=== PATIENT | male | born 1950 | race Two or more races ===

== ENCOUNTER 2021-08-25 11:11 | Outpatient (REF) | payer MEDICARE, SELFPAY ==
[2021-08-25 12:04] LABS: Influenza A PCR NEGATIVE (Negative); Influenza B PCR NEGATIVE (Negative); Resp Syncy Virus RNA Qual PCR NEGATIVE (Negative); SARS COV2 PCR INHOUSE POSITIVE (Negative)
== END 2021-08-25 11:12 | disposition home or self-care (01) ==
LOC: HO.LNP 11:11
PROVIDERS: Visit Provider Nurse Practitioner Family
DX: R63.0 Anorexia (principal); Z20.822 Contact with and (suspected) exposure to COVID-19
CPT/HCPCS: 0241U

== ENCOUNTER 2022-02-21 07:46 | Outpatient (REF) | payer MEDICARE, SELFPAY ==
[2022-02-21 08:01] LABS: MANUAL DIFF FLAG NO
[2022-02-21 08:18] LABS: Basophils Percent Auto 0.8 % (0-2); Eosinophils Absolute Auto 0.3 X10*3/uL (0.0-0.4); Eosinophils Percent Auto 5.7 % (0-4); Hematocrit 43.9 % (42.0-52.0); Hemoglobin 14.2 g/dl (14.0-18.0); Imm Gran Abs Auto 0.01 X10*3/uL (0.00-0.03); Imm Gran Pct Auto 0.2 % (0.0-0.4); Lymphocytes Absolute Auto 1.7 X10*3/uL (1.2-4.9); Lymphocytes Percent Auto 33.3 % (20-40); Mean Corpuscular HGB Conc 32.3 g/dl (31.0-36.0); Mean Corpuscular Hemoglobin 29.9 pg (27.0-33.0); Mean Corpuscular Volume 92.4 fL (80.0-98.0); Mean Platelet Volume 9.4 fL (9.4-12.4); Monocytes Absolute Auto 0.5 X10*3/uL (0.1-1.2); Monocytes Percent Auto 9.2 % (2-11); Neutrophils Absolute Auto 2.6 x10*3/uL (2.0-8.3); Neutrophils Percent Auto 50.8 % (45-73); Platelet Count 221 X10*3/uL (160-400); Red Blood Count 4.75 X10*6/uL (4.60-5.80); Red Cell Distribution Width 13.2 % (11.0-16.0); White Blood Count 5.1 X10*3/uL (4.8-10.8)
[2022-02-21 08:34] LABS: Alanine Aminotransferase 19 U/L (0-40); Albumin Level 4.2 g/dL (3.5-5.0); Alkaline Phosphatase 72 U/L (39-117); Anion Gap 11 (12-20); Aspartate Amino Transferase 20 U/L (5-37); Bilirubin Total 0.8 mg/dL (0.0-1.0); Blood Urea Nitrogen 27 mg/dL (9-16); Calcium 9.3 mg/dL (8.4-10.2); Carbon Dioxide 30 mmol/L (22-29); Chloride 105 mmol/L (96-108); Cholesterol 197 mg/dL; Estimated Glomerular Filt Rate 59; Glucose Fasting 101 mg/dL (60-99); HDL Cholesterol 51 mg/dL; LDL Cholesterol Calculated 134 mg/dl; Potassium 4.6 mmol/L (3.3-5.1); Sodium 141 mmol/L (135-145); Total Protein 6.8 g/dL (6.5-8.0); Triglycerides 61 mg/dL
[2022-02-21 08:59] LABS: Free T4 (Free Thyroxine) 1.14 ng/dL (0.71-1.85); Prostate Specific Antigen Scr 3.33 ng/mL (<0.05-4.0); Thyroid Stimulating Hormone 1.23 uIU/mL (0.32-4.0)
[2022-02-21 09:05] LABS: Folate 18.7 ng/mL (> or = 4.0); Vitamin B12 338 pg/mL (200-900)
== END 2022-02-21 07:47 | disposition home or self-care (01) ==
LOC: HO.LAB 07:46
PROVIDERS: PCP Internal Medicine; Visit Provider Internal Medicine
DX: Z13.1 Encounter for screening for diabetes mellitus (principal); Z12.5 Encounter for screening for malignant neoplasm of prostate; R03.0 Elevated blood-pressure reading, without diagnosis of hypertension; E78.00 Pure hypercholesterolemia, unspecified
CPT/HCPCS: 36415; 80053; 80061; 82607; 82746; 84153; 84439; 84443; 85025

== ENCOUNTER 2023-07-05 07:35 | Outpatient (REF) | payer MEDICARE, SELFPAY ==
[2023-07-05 10:44] LABS: MANUAL DIFF FLAG NO
[2023-07-05 10:54] LABS: Basophils Percent Auto 0.7 % (0-2); Eosinophils Absolute Auto 0.2 X10*3/uL (0.0-0.4); Hematocrit 44.1 % (42.0-52.0); Hemoglobin 14.8 g/dl (14.0-18.0); Imm Gran Abs Auto 0.01 X10*3/uL (0.00-0.03); Imm Gran Pct Auto 0.2 % (0.0-0.4); Lymphocytes Absolute Auto 1.7 X10*3/uL (1.2-4.9); Lymphocytes Percent Auto 28.7 % (20-40); Mean Corpuscular HGB Conc 33.6 g/dl (31.0-36.0); Mean Corpuscular Hemoglobin 30.3 pg (27.0-33.0); Mean Corpuscular Volume 90.4 fL (80.0-98.0); Mean Platelet Volume 9.5 fL (9.4-12.4); Monocytes Absolute Auto 0.4 X10*3/uL (0.1-1.2); Monocytes Percent Auto 5.9 % (2-11); Neutrophils Absolute Auto 3.7 x10*3/uL (2.0-8.3); Neutrophils Percent Auto 61.5 % (45-73); Platelet Count 265 X10*3/uL (160-400); Red Blood Count 4.88 X10*6/uL (4.60-5.80); Red Cell Distribution Width 12.9 % (11.0-16.0); White Blood Count 6.1 X10*3/uL (4.8-10.8)
[2023-07-05 11:15] LABS: Alanine Aminotransferase 15 U/L (0-40); Alkaline Phosphatase 65 U/L (39-117); Anion Gap 12 (12-20); Aspartate Amino Transferase 18 U/L (5-37); Bilirubin Total 0.7 mg/dL (0.0-1.0); Blood Urea Nitrogen 22 mg/dL (9-16); Calcium 9.6 mg/dL (8.4-10.2); Carbon Dioxide 27 mmol/L (22-29); Chloride 104 mmol/L (96-108); Cholesterol 189 mg/dL (<200); Estimated Glomerular Filt Rate > 60; Glucose Random 93 mg/dL (60-115); HDL Cholesterol 50 mg/dL (>40); LDL Cholesterol Calculated 125 mg/dL (<100); Potassium 4.7 mmol/L (3.3-5.1); Sodium 138 mmol/L (135-145); Triglycerides 73 mg/dL (<150)
[2023-07-05 11:23] LABS: Free T4 (Free Thyroxine) 1.01 ng/dL (0.71-1.85); Thyroid Stimulating Hormone 1.09 uIU/mL (0.32-4.0)
[2023-07-05 11:33] LABS: Folate 12.7 ng/mL (> or = 4.0); Vitamin B12 349 pg/mL (200-900)
== END 2023-07-05 07:36 | disposition home or self-care (01) ==
LOC: HO.10HDL 07:35
PROVIDERS: Visit Provider Internal Medicine
DX: E78.00 Pure hypercholesterolemia, unspecified (principal)
CPT/HCPCS: 36415; 80053; 80061; 82607; 82746; 84439; 84443; 85025

== ENCOUNTER 2023-07-12 09:25 | Outpatient (AMB) | payer MEDICARE, SELFPAY ==
[2023-07-12 09:28] VITALS: BP 150/82; PULSE 81; O2SAT 98; BMI 25.8
--- NOTE | 2023-07-12 09:28 | MHC.PC.OV ---
Vital Signs 07/12/23 09:28 Height 5 ft 7 in Weight 165 lb BMI 25.8 BP 150/82 H Blood Pressure Location Lt brachial Position Sitting Pulse 81 Pulse Source Pulse Oximeter Pulse Oximetry (%) 98 Oxygen Delivery Method Room Air Intake Visit Reasons: follow up Intake Note: Patient had 3 cups of coffee this morning. Allergies No Known Allergies Allergy (Verified 07/12/23 09:29) Tobacco use date assessed: 07/12/23 Fall risk assessment: No Falls in past year Last assessed Fall Risk: 07/12/23 Dental Screening Dental Screen Date: 07/12/23 Did you have a dental visit in the last 12 months?: Yes Did you have a dental problem in the last 6 months where you did not have access to dental care?: No Was dental information given to patient?: Patient has dentist HPI follow up HPI Details 73 year old male with hypercholesterol impaired glucose tolerance here for follow-up in February 2020 last seen Cologuard done in 2018. Review of the notes has been follow-up with Rheumatology 0 AP having cervical and lumbar disc degeneration and osteoarthritis using naproxen/Voltaren gel [facility] Medical History (Updated 07/12/23 @ 10:12 by Randall Monae MD) Degenerative disc disease, thoracic Surgical History (Updated 10/11/21 @ 19:09 by DONTE Matthew) History of colonoscopy History of testicular surgery H/O ventral hernia repair H/O arthroscopic knee surgery H/O thumb surgery Cervical disc disease Family History (Updated 07/12/23 @ 09:30 by Jessika Souza CMA) Father Myocardial infarct Paternal Aunt Myocardial infarct Social History Housing: House Alcohol intake: current Patient Tobacco Use Status: Former Tobacco user Tobacco use type: Cigarette Years Smoked: quit 1975 e-Cigarette/Vaping Use: Never Used Second Hand Smoke Exposure: No service: No Current occupational status: retired Cognitive needs: No Hearing needs: Yes Vision needs: Yes Questionnaire PHQ-9 Over the last 2 weeks, how often have you been bothered by any of the following problems? 1. Little interest or pleasure in doing things: not at all 2. Feeling down, depressed, or hopeless: not at all 3. Trouble falling or staying asleep, or sleeping too much: not at all 4. Feeling tired or having little energy: not at all 5. Poor appetite or overeating: not at all 6. Feeling bad about yourself - or that you are a failure or have let yourself or your family down: not at all 7. Trouble concentrating on things, such as reading the newspaper or watching television: not at all 8. Moving or speaking so slowly that other people could have noticed. Or the opposite - being so fidgety or restless that you have been moving around a lot more than usual: not at all 9. Thoughts that you would be better off or of hurting yourself in some way: not at all Total score: 0 Depression Screening Interpretation: Negative Depression Screening Done: Yes Source: Developed by Drs. Dino Luna, Lynne Botello, Christopher Vincent and colleagues, with an educational сергей from [employer]. Thrive Questionnaire Date Thrive assessed: 07/12/23 I am a: Patient What is your living situation today?: I have a steady place to live Within the past 12 months, did the food you bought not last and you didn't have the money to get more?: Never true Within the past 12 months, did you worry whether your food would run out before you got money to buy more?: Never true Do you have trouble paying for medicines?: No Do you have trouble getting transportation to medical appointments?: No Do you have trouble paying your heating and electricity bill?: No Do you have trouble taking care of your child, family member or friend?: No Do you have trouble with day-to-day activities such as bathing, preparing meals, shopping, managing finances, etc.?: No Are you currently unemployed and looking for a job?: No Are you interested in more education?: No Currently or been in a relationship where the following occur: no concerns reported AUDIT C Alcohol Use Questionnaire (AUDIT-C) 1. How often do you have a drink containing alcohol?: 4 or more times a week 2. How many drinks containing alcohol do you have on a typical day when you are drinking?: 1 or 2 3. How often do you have six or more drinks on one occasion?: Never Total Score: 4 ROZ-7 AMB Questionnaire ROZ-7 Date ROZ - 7 assessed: 07/12/23 Feeling nervous, anxious, or on edge: 0 = Not at all Not being able to stop or control worryin = Not at all Worrying too much about different things: 0 = Not at all Trouble relaxin = Not at all Being so restless that it is hard to sit still: 0 = Not at all Becoming easily annoyed or irritable: 0 = Not at all Feeling afraid as if something awful might happen: 0 = Not at all Total ROZ-7 score (0-4 normal; 5-9 mild; 10-14 moderate; 15-21 severe): 0 Source: Developed by Drs. Dino Luna, Lynne Botello, Christopher Vincent and colleagues, with an educational сергей from [employer]. Physical exam (Primary Care) Vital Signs: Last Vital Signs Pulse 81 07/12/23 09:28 BP 150/82 H 07/12/23 09:28 Pulse Ox 98 07/12/23 09:28 Oxygen Delivery Method Room Air 07/12/23 09:28 BMI result Body Mass Index 25.8 Tobacco/Smoking Status: Tobacco use Status Tobacco use date assessed 07/12/23 07/12/23 09:31 Patient Tobacco Use Status Former Tobacco user 07/12/23 09:31 Tobacco use type Cigarette 07/12/23 09:31 e-Cigarette/Vaping Use Never Used 07/12/23 09:31 PHQ-9: PHQ-9 Score PHQ-9: Total score 0 07/12/23 09:36 Depression Screening Interpretation: Negative Thrive Assessment: Date of Thrive Assessment Date Thrive assessed 07/12/23 07/12/23 09:31 Currently or been in a relationship where the following occur: no concerns reported Const General: alert; No acute distress Eyes Conjunctivae: conjunctivae normal Resp Auscultation: clear to auscultation bilaterally Cardio Rate: regular rate Rhythm: regular rhythm GI Inspection: Yes normal to inspection Extrem General: Yes normal to inspection and No edema Assessment and Plan Assessment & Plan (1) Impaired glucose tolerance: Code(s): R73.02 - Impaired glucose tolerance (oral) Plan: Decrease the amount of carbohydrate intake, pasta, bread, rice and potatoes are all sugar and that is aside from all the sweet stuff, remember that fruits are good but they are Sweet also. Recent blood work normal (2) Hypercholesterolemia: Code(s): E78.00 - Pure hypercholesterolemia, unspecified Plan: Avoid fried foods, chicken skin, eggs, butter margarine, pastries and meat. Be it pork or beef they have a lot of cholesterol recent blood work normal (3) Degenerative disc disease, thoracic: Comment: Thoracic and lumbar with lumbar spondylosis 2013 Code(s): M51.34 - Other intervertebral disc degeneration, thoracic region Plan: Patient follows up with Rheumatology (4) Osteoarthritis, hand: Code(s): M19.049 - Primary osteoarthritis, unspecified hand Plan: Patient follows up with Rheumatology naproxen/Voltaren gel Coding Level of Care Code Est Pt Level 4 (85524) Diagnoses Impaired glucose tolerance R73.02 Hypercholesterolemia E78.00 Degenerative disc disease, thoracic M51.34 Osteoarthritis, hand M19.049 Additional Codes PHQ-9 - 39443 - PHQ-9 Billing: ([id number])
== END 2023-07-12 10:25 | disposition home or self-care (01) ==
PROVIDERS: PCP Internal Medicine; Visit Provider Internal Medicine
DX: R73.02 Impaired glucose tolerance (oral) (principal); E78.00 Pure hypercholesterolemia, unspecified; M51.34 Other intervertebral disc degeneration, thoracic region; M19.049 Primary osteoarthritis, unspecified hand
CPT/HCPCS: 99214

== ENCOUNTER 2023-07-27 14:19 | Outpatient (AMB) | payer MEDICARE, SELFPAY ==
--- NOTE | 2023-07-27 14:26 | A.OFFVIS_ITS ---
Intake Vital Signs 07/27/23 14:30 Height 5 ft 7 in Weight 166 lb 8 oz BMI 26.1 BP 130/74 Blood Pressure Location Lt brachial Position Sitting Pulse 74 Pulse Source Pulse Oximeter Pulse Oximetry (%) 96 Oxygen Delivery Method Room Air Intake Visit Reasons: AWV Intake Note: Patient is here for an Annual Wellness Visit. 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 Patient of Dr. Monae. Today we discussed patient's need for prostate cancer screening. Cologuard negative 09/2022. [place] of care was reviewed with the patient and he was provided with a screening schedule. End of life planning was discussed with the patient and he was provided with healthcare proxy and MOLST forms. [facility] Medical History COVID-19 virus infection Degenerative disc disease, thoracic Surgical History History of colonoscopy History of testicular surgery H/O ventral hernia repair H/O arthroscopic knee surgery H/O thumb surgery Cervical disc disease Family History Father Myocardial infarct Paternal Aunt Myocardial infarct Social History Housing: House Alcohol intake: current Patient Tobacco Use Status: Former Tobacco user Tobacco use type: Cigarette Years Smoked: quit 1975 e-Cigarette/Vaping Use: Never Used Second Hand Smoke Exposure: No service: No Current occupational status: retired Cognitive needs: No Hearing needs: Yes Vision needs: Yes Questionnaire Medicare Wellness Checkup [age] What gender do you identify with?: male Can you get to places out of walking distance without help? (For eg., can you travel alone on buses, taxis or drive your car?): Yes Can you go shopping for groceries or clothes without someone's help?: Yes Can you prepare your own meals?: Yes Can you do your housework without help?: Yes Because of any health problems, do you need the help of another person with your personal care needs such as eating, bathing, dressing or getting around the house?: No Can you handle your own money without help?: Yes Are you having difficulties driving your car?: no Do you always fasten your seat belt when you are in a car?: yes, usually During past 4 weeks, have you been bothered by the following: never: Falling or dizzy when standing up, Sexual problems?, Trouble eating well?, Teeth or denture problems?, Problems using the telephone? and Tiredness or fatigue? Have you fallen 2 or more times in the past year?: No Are you afraid of falling?: No Are you a smoker?: no During the past 4 weeks, how many drinks of wine, beer, or other alcoholic beverages did you have?: 1 drink or less per week Do you exercise for about 20 minutes 3 or more times a week?: yes, all the time Have you been given information to help with the following?: yes: Keeping track of your medications? and no: Hazards in your house that might hurt you? How often do you have trouble taking medicines the way you have been told to take them?: I always take medicine as prescribed How confident are you that you can control & manage most of your health problems?: very confident What is your race?: White Mini Mental State Exam (MMSE) Orientation What is the (year) (season) (date) (day) (month)?: year, season, date, day and month Score Score: 5 Activity of Daily Living Bathing - sponge bath, tub bath or shower: receives no assistance (gets in/out by self, if usual bathing means Dressing - getting clothes from closets & drawers, including inner/outer garments & fasteners.: gets clothes & gets completely dressed without help Toileting - going to the 'toilet room' for urine/bowel elimination & cleaning self/arranging clothes: goes to toilet room, cleans self, arranges clothes without help Transfer: moves in & out of bed and chair without help (may use support object) Continence: controls urination/bowel movements completely by self Feeding: feeds self without help Total Score: 0 Information obtained from: patient Using telephone: independent Traveling: independent Shopping: independent Preparing meals: independent Housework: independent Taking medicine: independent Managing money: independent Thrive Questionnaire Date Thrive assessed: 07/12/23 ROZ-7 AMB Questionnaire ROZ-7 Date ROZ - 7 assessed: 07/12/23 Source: Developed by Drs. Dino Luna, Lynne Botello, Christopher Vincent and colleagues, with an educational сергей from [employer]. Physical Exam Vital Signs: Last Vital Signs Pulse 74 07/27/23 14:30 BP 130/74 07/27/23 14:30 Pulse Ox 96 07/27/23 14:30 Oxygen Delivery Method Room Air 07/27/23 14:30 BMI result Body Mass Index 26.1 Const General: cooperative and no acute distress Orientation/consciousness: patient oriented x3 HEENT Other: Whisper test: fail (bilateral hearing aids) Ears: TM's normal bilaterally Neuro Other: Balance: Normal Get up and walk: able to Romberg: negative Tandem gait: able to General: patient oriented x3 Assessment & Plan Assessment & Plan (1) Adult general medical exam: Code(s): Z00.00 - Encounter for general adult medical examination without abnormal findings (2) Screening for prostate cancer: Code(s): Z12.5 - Encounter for screening for malignant neoplasm of prostate (3) Arthritis: Code(s): M19.90 - Unspecified osteoarthritis, unspecified site Plan: Naproxen 500 mg 2 times a day as needed (4) Blood pressure elevated without history of HTN: Code(s): R03.0 - Elevated blood-pressure reading, without diagnosis of hypertension Plan: Blood pressure stable in the office (5) Impaired glucose tolerance: Code(s): R73.02 - Impaired glucose tolerance (oral) Plan: Low-carbohydrate diet (6) Hypercholesterolemia: Code(s): E78.00 - Pure hypercholesterolemia, unspecified Plan: Low-cholesterol diet Orders: Orders Prostate Specific Antigen Today Z12.5 - Encounter for screening for malignant neoplasm of prostate Coding Level of Care Code Medicare Subsequent (G0439) Diagnoses Adult general medical exam Z00.00 Screening for prostate cancer Z12.5 Arthritis M19.90 Blood pressure elevated without history of HTN R03.0 Impaired glucose tolerance R73.02 Hypercholesterolemia E78.00 CPT Codes Advance Care Planning - Time spent: 1-15 minutes, not on file ([id number]) Advance Care Planning Date of discussion: 07/27/23 Who was present: pt and osteopathic resident Forms completed: None Time spent: 1-15 minutes, not on file Actual minutes spent: 3 Did not discuss due to Cultural/Spiritual beliefs: No
[2023-07-27 14:30] VITALS: BP 130/74; PULSE 74; O2SAT 96; BMI 26.1
== END 2023-07-27 14:56 | disposition home or self-care (01) ==
PROVIDERS: PCP Internal Medicine; Visit Provider Nurse Practitioner Family
DX: Z00.00 Encounter for general adult medical examination without abnormal findings (principal); Z12.5 Encounter for screening for malignant neoplasm of prostate; M19.90 Unspecified osteoarthritis, unspecified site; R03.0 Elevated blood-pressure reading, without diagnosis of hypertension; R73.02 Impaired glucose tolerance (oral); E78.00 Pure hypercholesterolemia, unspecified
CPT/HCPCS: 1124F; G0439

== ENCOUNTER 2024-07-31 13:49 | Outpatient (AMB) | payer MEDICARE, SELFPAY ==
[2024-07-31 13:53] VITALS: BP 112/72; PULSE 69; O2SAT 99; BMI 25.4
--- NOTE | 2024-07-31 13:53 | AM.OFFVISMDC ---
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 Last seen in 07/06/2023. Patient's Cologuard test 10/06/2022 Rheumatology, Ophthalmology Dr. Trejo [facility] Medical History (Updated 07/31/24 @ 13:58 by Randall Monae MD) Screening for prostate cancer COVID-19 virus infection Degenerative disc disease, thoracic Surgical History History of colonoscopy History of testicular surgery H/O ventral hernia repair H/O arthroscopic knee surgery H/O thumb surgery Cervical disc disease Family History Father Myocardial infarct Paternal Aunt Myocardial infarct Social History (Updated 07/31/24 @ 14:07 by Randall Monae MD) Housing: House Alcohol intake: current Comment: 1-2 a week glass of wine Patient Tobacco Use Status: Former Tobacco user Tobacco use type: Cigarette Years Smoked: quit 1975 e-Cigarette/Vaping Use: Never Used Second Hand Smoke Exposure: No service: No Current occupational status: retired Cognitive needs: No Hearing needs: Yes Vision needs: Yes Questionnaire Medicare Wellness Checkup What [age]?: [age] What gender do you identify with?: male During the past 4 weeks, how much have you been bothered by emotional problems such as feeling anxious, depressed, irritable, sad or downhearted, and blue?: not at all During the past 4 weeks, has your physical & emotional health limited your social activities with family, friends, neighbors, or groups?: not at all During the past 4 weeks, how much bodily pain have you generally had?: mild pain During the past 4 weeks, was someone available to help you if you needed & wanted help?: yes, as much as I wanted During the past 4 weeks, what was the hardest physical activity you could do for at least 2 minutes?: heavy Can you get to places out of walking distance without help? (For eg., can you travel alone on buses, taxis or drive your car?): Yes Can you go shopping for groceries or clothes without someone's help?: Yes Can you prepare your own meals?: Yes Can you do your housework without help?: Yes Because of any health problems, do you need the help of another person with your personal care needs such as eating, bathing, dressing or getting around the house?: No Can you handle your own money without help?: Yes During the past 4 weeks, how would you rate your health in general?: good During the past 4 weeks how have things been going for you?: pretty well Are you having difficulties driving your car?: no Do you always fasten your seat belt when you are in a car?: yes, usually Have you fallen 2 or more times in the past year?: No Are you afraid of falling?: No Are you a smoker?: no During the past 4 weeks, how many drinks of wine, beer, or other alcoholic beverages did you have?: 1 drink or less per week Do you exercise for about 20 minutes 3 or more times a week?: no, I usually do not exercise this much Have you been given information to help with the following?: no: Hazards in your house that might hurt you? and no: Keeping track of your medications? How often do you have trouble taking medicines the way you have been told to take them?: I always take medicine as prescribed How confident are you that you can control & manage most of your health problems?: very confident What is your race?: Other PHQ-9 Over the last 2 weeks, how often have you been bothered by any of the following problems? 1. Little interest or pleasure in doing things: not at all 2. Feeling down, depressed, or hopeless: not at all 3. Trouble falling or staying asleep, or sleeping too much: not at all 4. Feeling tired or having little energy: not at all 5. Poor appetite or overeating: not at all 6. Feeling bad about yourself - or that you are a failure or have let yourself or your family down: not at all 7. Trouble concentrating on things, such as reading the newspaper or watching television: not at all 8. Moving or speaking so slowly that other people could have noticed. Or the opposite - being so fidgety or restless that you have been moving around a lot more than usual: not at all 9. Thoughts that you would be better off or of hurting yourself in some way: not at all Total score: 0 Depression Screening Interpretation: Negative Depression Screening Done: Yes 73716 - PHQ-9 Billing: Yes Source: Developed by Drs. Dino Luna, Lynne Botello, Christopher Vincent and colleagues, with an educational сергей from [employer]. Review of Systems Const Denies poor appetite and Denies weakness Eyes Denies no additional complaints ENT Reports Normal hearing present, Denies dizziness, Denies nasal congestion, Denies tinnitus and Denies sore throat Card Denies chest pain, Denies syncope, Denies rapid heart rate and Denies dyspnea Resp Denies cough and Denies dyspnea GI Denies change in stool character, Reports constipation, Denies diarrhea, Denies nausea and Denies vomiting Denies dysuria and Denies urinary frequency Neuro Reports Normal hearing present, Denies confusion, Denies dizziness, Denies syncope and Denies weakness Psych Denies confusion Physical Exam Vital Signs: Oxygen Delivery Method Room Air 07/31/24 13:53 BMI result Body Mass Index 25.4 Const General: No confusion Orientation/consciousness: No confusion HEENT Head: Yes normocephalic Ears: external ears normal and TM's normal bilaterally Face and sinus: Yes normal facial exam Mouth: moist mucous membranes Throat: Yes tonsils normal Eyes Conjunctivae: conjunctivae normal Pupils: Equal, round and reactive pupils present and Pupil accommodation reflex normal Direct Ophthalmoscopy: normal light reflex Neck Neck: No lymphadenopathy Thyroid: Thyroid normal Chest Chest palpation & inspection: normal inspection of the chest Resp Effort & Inspection: normal respiratory effort and no audible wheezes Auscultation: clear to auscultation bilaterally, no crackles, no wheezes and lung sounds not diminished Cardio Rate: regular rate Rhythm: regular rhythm Peripheral pulses: radial pulses present and dorsalis pedis present GI Other: guaic negative mild enlarged prostate Palpation (GI): no masses Auscultation: normal bowel sounds and normoactive bowel sounds Male General Exam: Yes normal external exam Skin General skin exam: no rashes or lesions noted Rashes: no rashes Neuro General: No confusion Cranial nerves: Yes Equal, round and reactive pupils present and Yes Normal hearing present Cognition (Neuro): normal cognition Gait exam (Neuro): Normal gait present Motor exam (neuro): 5/5 motor strength present throughout Deep tendon reflexes (DTR's): Right brachioradialis reflex intensity grade: 2+, Left brachioradialis reflex intensity grade: 2+, Right patellar reflex intensity grade: 2+ and Left patellar reflex intensity grade: 2+ Extrem General: No edema Assessment & Plan Assessment & Plan (1) Medicare annual wellness visit, subsequent: Code(s): Z00.00 - Encounter for general adult medical examination without abnormal findings Plan: Patient is advised to eat healthy, keep well hydrated, keep active and have adequate sleep. (2) Impaired glucose tolerance: Code(s): R73.02 - Impaired glucose tolerance (oral) Plan: Decrease the amount of carbohydrate intake, pasta, bread, rice and potatoes are all sugar and that is aside from all the sweet stuff, remember that fruits are good but they are Sweet also. Repeat testing normal (3) Hypercholesterolemia: Code(s): E78.00 - Pure hypercholesterolemia, unspecified Plan: Avoid fried foods, chicken skin, eggs, butter margarine, pastries and meat. Be it pork or beef they have a lot of cholesterol LDL goal of less than 130 and triglyceride of less than 150. Repeat testing resolved (4) Degenerative disc disease, thoracic: Comment: Thoracic and lumbar with lumbar spondylosis 2013 Code(s): M51.34 - Other intervertebral disc degeneration, thoracic region Plan: Continue to be active and when taking anti-inflammatory, need full stomach. Quality Reporting (2019) Depression/Bipolar (159/160/161/177) PHQ-9: Total score: 0 Coding Level of Care Code Medicare Subsequent (G0439) Diagnoses Medicare annual wellness visit, subsequent Z00.00 Impaired glucose tolerance R73.02 Hypercholesterolemia E78.00 Degenerative disc disease, thoracic M51.34 Additional Codes PHQ-9 - 10755 - PHQ-9 Billing: Yes ([id number])
== END 2024-07-31 14:22 | disposition home or self-care (01) ==
PROVIDERS: PCP Internal Medicine; Visit Provider Internal Medicine
DX: Z00.00 Encounter for general adult medical examination without abnormal findings (principal); R73.02 Impaired glucose tolerance (oral); E78.00 Pure hypercholesterolemia, unspecified; M51.34 Other intervertebral disc degeneration, thoracic region

== ENCOUNTER → 2024-07-31 13:49 | Outpatient (BNVA) | payer MEDICARE, SELFPAY | PROVIDERS: PCP Internal Medicine; Visit Provider Internal Medicine | DX: Z00.00 Encounter for general adult medical examination without abnormal findings (principal); R73.02 Impaired glucose tolerance (oral); E78.00 Pure hypercholesterolemia, unspecified; M51.34 Other intervertebral disc degeneration, thoracic region | CPT/HCPCS: 96127 ==

== ENCOUNTER 2024-09-30 10:17 | Outpatient (AMB) | payer MEDICARE, SELFPAY ==
--- NOTE | 2024-09-30 10:31 | MHC.PC.OV ---
Vital Signs 09/30/24 10:33 Height 5 ft 7 in Weight 167 lb 6 oz BMI 26.2 BP 130/76 Blood Pressure Location Lt brachial Position Sitting Pulse 69 Pulse Source Pulse Oximeter Pulse Oximetry (%) 94 Oxygen Delivery Method Room Air Intake Visit Reasons: Derm Referral Intake Note: Patient is here to follow up on Dermatology referral. 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: Not Required per policy Accompanied by: Self / Same As Patient Allergies No Known Allergies Allergy (Verified 09/30/24 10:33) Tobacco use date assessed: 09/30/24 Fall risk assessment: No Falls in past year Last assessed Fall Risk: 09/30/24 Dental Screening Dental Screen Date: 09/30/24 Did you have a dental visit in the last 12 months?: Yes Did you have a dental problem in the last 6 months where you did not have access to dental care?: No Was dental information given to patient?: Patient has dentist HPI Derm Referral HPI Details The patient is a 74-year-old male presenting with concerns about brown zheng noticed by his approximately one month ago on his back and front of the torso, as well as on his shoulders. There is intermittent associated itchiness but no pain or significant changes in the condition of the spots have been observed since they were first noticed. The patient denies symptoms such as nausea, vomiting, or fever and reports normal bowel movements and urination. He has chronic osteoarthritis, for which he takes Naproxen 500 mg twice daily, and he undergoes annual blood tests to monitor the condition. There were no recent changes in his blood work as of the last update in June last year, with normal renal function and absence of anemia. The blood pressure reading during this visit was 130/76 mmHg, which is stable and well-controlled. Vaccinations have not been recent, and the patient was advised about the importance of flu and COVID-19 vaccinations due to the prevalent respiratory infections, including RSV. The patient was receptive to the advice regarding infection prevention through hand hygiene. He expressed an understanding of the current health risks associated with upper respiratory infections and acknowledged the importance of vaccinations in this context. [facility] Medical History (Updated 09/30/24 @ 11:05 by Randall Monae MD) Screening for prostate cancer COVID-19 virus infection Degenerative disc disease, thoracic Surgical History History of colonoscopy History of testicular surgery H/O ventral hernia repair H/O arthroscopic knee surgery H/O thumb surgery Cervical disc disease Family History Father Myocardial infarct Paternal Aunt Myocardial infarct Social History Housing: House Alcohol intake: current Comment: 1-2 a week glass of wine Patient Tobacco Use Status: Former Tobacco user Tobacco use type: Cigarette Years Smoked: quit 1976 e-Cigarette/Vaping Use: Never Used Second Hand Smoke Exposure: No service: No Current occupational status: retired Cognitive needs: No Hearing needs: Yes Vision needs: Yes Questionnaire PHQ-9 Over the last 2 weeks, how often have you been bothered by any of the following problems? 1. Little interest or pleasure in doing things: not at all 2. Feeling down, depressed, or hopeless: not at all 3. Trouble falling or staying asleep, or sleeping too much: not at all 4. Feeling tired or having little energy: not at all 5. Poor appetite or overeating: not at all 6. Feeling bad about yourself - or that you are a failure or have let yourself or your family down: not at all 7. Trouble concentrating on things, such as reading the newspaper or watching television: not at all 8. Moving or speaking so slowly that other people could have noticed. Or the opposite - being so fidgety or restless that you have been moving around a lot more than usual: not at all 9. Thoughts that you would be better off or of hurting yourself in some way: not at all Total score: 0 Depression Screening Interpretation: Negative Depression Screening Done: Yes Source: Developed by Drs. Dino Luna, Lynne Botello, Christopher Vincent and colleagues, with an educational сергей from [employer]. Thrive Questionnaire Date Thrive assessed: 09/30/24 I am a: Patient What is your living situation today?: I have a steady place to live Within the past 12 months, did the food you bought not last and you didn't have the money to get more?: Never true Within the past 12 months, did you worry whether your food would run out before you got money to buy more?: Never true Do you have trouble paying for medicines?: No Do you have trouble getting transportation to medical appointments?: No Do you have trouble paying your heating and electricity bill?: No Do you have trouble taking care of your child, family member or friend?: No Do you have trouble with day-to-day activities such as bathing, preparing meals, shopping, managing finances, etc.?: No Are you currently unemployed and looking for a job?: No Are you interested in more education?: No Please select the resources that you would like help with: None Currently or been in a relationship where the following occur: No concerns reported and I choose not to answer THRIVE Score: 0 AUDIT C Alcohol Use Questionnaire (AUDIT-C) 1. How often do you have a drink containing alcohol?: 4 or more times a week 2. How many drinks containing alcohol do you have on a typical day when you are drinking?: 1 or 2 Total Score: 4 ROZ-7 AMB Questionnaire ROZ-7 Date ROZ - 7 assessed: 09/30/24 Feeling nervous, anxious, or on edge: 0 = Not at all Not being able to stop or control worryin = Not at all Worrying too much about different things: 0 = Not at all Trouble relaxin = Not at all Being so restless that it is hard to sit still: 0 = Not at all Becoming easily annoyed or irritable: 0 = Not at all Feeling afraid as if something awful might happen: 0 = Not at all Total ROZ-7 score (0-4 normal; 5-9 mild; 10-14 moderate; 15-21 severe): 0 Source: Developed by Drs. Dino Luna, Lynne Botello, Christopher Vincent and colleagues, with an educational сергей from [employer]. Physical exam (Primary Care) Vital Signs: Last Vital Signs Pulse 69 09/30/24 10:33 BP 130/76 09/30/24 10:33 Pulse Ox 94 09/30/24 10:33 Oxygen Delivery Method Room Air 09/30/24 10:33 BMI result Body Mass Index 26.2 Tobacco/Smoking Status: Tobacco use Status Tobacco use date assessed 09/30/24 09/30/24 10:34 Patient Tobacco Use Status Former Tobacco user 09/30/24 10:33 Tobacco use type Cigarette 09/30/24 10:33 e-Cigarette/Vaping Use Never Used 09/30/24 10:33 PHQ-9: PHQ-9 Score PHQ-9: Total score 0 09/30/24 10:39 Depression Screening Interpretation: Negative Thrive Assessment: Date of Thrive Assessment Date Thrive assessed 09/30/24 09/30/24 10:39 Currently or been in a relationship where the following occur: No concerns reported and I choose not to answer Const General: alert; No acute distress Eyes Conjunctivae: conjunctivae normal Resp Auscultation: clear to auscultation bilaterally Cardio Rate: regular rate Rhythm: regular rhythm GI Inspection: Yes normal to inspection Skin Other: multiple pigmented nevi - big irregular hyperpigemnted lesion R shoulder area1 by 2 cm and raised lesion on the L thoracic back area1 by 2 cm Extrem General: Yes normal to inspection and No edema Coding Level of Care Code Est Pt Level 3 (59189) Diagnoses Multiple pigmented nevi D22.9 Actinic keratosis L57.0 Assessment & Plan Assessment & Plan (1) Multiple pigmented nevi: Code(s): D22.9 - Melanocytic nevi, unspecified Category: Medical (2) Actinic keratosis: Code(s): L57.0 - Actinic keratosis Category: Medical Plan - Referral to dermatology for evaluation of skin lesions possibly consistent with seborrheic keratosis. - Continued monitoring of blood pressure, as current readings remain within normal range. - Reinforce adherence to regular blood tests to monitor kidney function given the use of Naproxen, ensuring to take the medication with food. - Discussed the benefits of vaccination for influenza, COVID-19, and RSV due to heightened exposure risk during flu season and patient expressed agreement. - Emphasize the importance of hand hygiene to prevent norovirus and other infections. - Advising patient to [facility] or [facility] for inclusion in their medical records at this clinic. Orders: Referrals Dermatology Referral D22.9 - Melanocytic nevi, unspecified, L57.0 - Actinic keratosis
[2024-09-30 10:33] VITALS: BP 130/76; PULSE 69; O2SAT 94; BMI 26.2
--- OUTSIDE RECORDS SUMMARY | 2024-09-30 11:50 | XMS_ITS | Continuity of Care Document ---
Author Name [facility] Organization [facility] Care Team Providers Care Claims Auditor Name Role Phone [facility] Unavailable Unavailable Problems Combined list of problems from Department of Defense and Veterans Affairs facilities. It does not include entries that were removed or entered in error. 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, right ankle and foot Active Diagnosis [facility] Diagnosis: ICD-10-CM H91.93 Unspecified hearing loss, bilateral Active Diagnosis [facility] Diagnosis: ICD-10-CM M20.10 Hallux valgus (acquired), unspecified foot Active Diagnosis [facility] Diagnosis: ICD-10-CM Z46.0 Encounter for fit/adjst of spectacles and contact lenses Active Diagnosis [facility] Diagnosis: ICD-10-CM H25.813 Combined forms of age-related cataract, bilateral Active Diagnosis [facility] Medications Combined list of outpatient medications from Department of Defense and Veterans Affairs facilities.Medications provided include 1) outpatient medications from the last 15 months, and 2) patient-reported medications. Medication Details Route Status Patient Instructions Prescription Expires Prescription Number Last Dispense Date Ordering Provider Order Date Order Qty Source BENZONATATE 200MG CAP TAKE ONE CAPSULE BY MOUTH THREE TIMES A DAY FOR COUGH FOR COUGH ORAL 08/14/2024 [id number] FURCOLO,T PURNIMA 2023 30 [facility] NAPROXEN 500MG TAB TAKE ONE TABLET BY MOUTH TWICE DAILY ORAL ACTIVE [facility]be [facility]ARR [facility] Allergies, Adverse Reactions, Alerts Combined list of allergies from Department of Defense and Veterans Affairs facilities. It does not include entries that were removed or entered in error. Substance Category Reaction Severity Reaction type Status Date Reported Comments Source ADHESIVE TAPE Propensity to adverse reaction (finding) Eruption active 4 [facility] Results Combined list of recent chemistry, hematology and other laboratory results from Department of Defense and Veterans Affairs, ranging from 15 months to all on record, depending upon the facility. Order Name Results Value Reference Range Date Interpretation Specimen Comments Source LIPID PANEL FASTING CHOLESTEROL [MASS/VOLUM E] IN SERUM OR PLASMA 177 mg/dL 07/15 Specimen Type: SERUM No comment entered. Ordering Provider: SEAN PARR Report Released Date/Time: Jul 04, 2024 02:01 PM Reporting Lab: [facility] [address] [facility] [address] Performing Lab: [facility] [address] [facility] LIPID PANEL FASTING TRIGLYCERID E [MASS/VOLUM E] IN SERUM OR PLASMA 72 mg/dL 0 - 150 07/15 Specimen Type: SERUM No comment entered. Ordering Provider: SEAN PARR Report Released Date/Time: Jul 04, 2024 02:01 PM Reporting Lab: [facility] [address] [facility] [address] Performing Lab: [facility] [address] [facility] LIPID PANEL FASTING CHOLESTEROL IN LDL [MASS/VOLUM E] IN SERUM OR PLASMA BY CALCULATION 118 mg/dL 0 - 129 07/15 Specimen Type: SERUM No comment entered. Ordering Provider: SEAN PARR Report Released Date/Time: Jul 04, 2024 02:01 PM Reporting Lab: [address] [address] Performing Lab: [facility] [address] [facility] [address] [facility] LIPID PANEL FASTING CHOLESTEROL .TOTAL/CHOL ESTEROL IN HDL [MASS RATIO] IN SERUM OR PLASMA 3.9 07/15 Specimen Type: SERUM No comment entered. Ordering Provider: SEAN PARR Report Released Date/Time: Jul 04, 2024 02:01 PM Reporting Lab: [facility] [place] [facility] [address] [facility] [address] Performing Lab: [place] [facility] [place] [facility] [address] [facility] [address] [facility] LIPID PANEL FASTING CHOLESTEROL IN HDL [MASS/VOLUM E] IN SERUM OR PLASMA 45 mg/dL 40 - 60 07/15 Specimen Type: SERUM No comment entered. Ordering Provider: SEAN PARR Report Released Date/Time: Jul 04, 2024 02:01 PM Reporting Lab: [facility] [place] [facility] [address] [facility] [address] Performing Lab: [facility] [address] [address] [facility]N [facility] BASIC METABOLIC PANEL (fasting) UREA NITROGEN [MASS/VOLUM E] IN SERUM OR PLASMA 23 mg/dL 7 - 25 07/15 Specimen Type: SERUM No comment entered. Ordering Provider: SEAN PARR Report Released Date/Time: Jul 04, 2024 02:01 PM Reporting Lab: [facility] [place] [facility] [address] [facility] [address] Performing Lab: [facility] [place] [facility] [address] [facility] [address] [facility] BASIC METABOLIC PANEL (fasting) GLUCOSE [MASS/VOLUM E] IN SERUM OR PLASMA 83 mg/dL 65 - 100 07/15 Specimen Type: SERUM No comment entered. Ordering Provider: SEAN PARR Report Released Date/Time: Jul 04, 2024 02:01 PM Reporting Lab: [facility] [place] [address] [address] Performing Lab: [facility]ITALRHE[facility]OSPITALTRN [facility] [address] [facility] [address] [facility]ITALRHELEN KELLER HOSPITALTRN [facility] BASIC METABOLIC PANEL (fasting) SODIUM [MOLES/VOLU ME] IN SERUM OR PLASMA 137 mmol/L 135 - 145 07/15 Specimen Type: SERUM No comment entered. Ordering Provider: SEAN PARR Report Released Date/Time: Jul 04, 2024 02:01 PM Reporting Lab: [facility] [address] [facility] [address] Performing Lab: [facility]ITAL[facility] TRN [address] [address] [facility] BASIC METABOLIC PANEL (fasting) POTASSIUM [MOLES/VOLU ME] IN SERUM OR PLASMA 4.3 mmol/L 3.5 - 5.0 07/15 Specimen Type: SERUM No comment entered. Ordering Provider: SEAN PARR Report Released Date/Time: Jul 04, 2024 02:01 PM Reporting Lab: [facility] TRN [facility]USE[address] [address] Performing Lab: [facility]ITALRL TRN [facility] [address] [facility] [address] [facility]OSPITALRLAUREL [facility] BASIC METABOLIC PANEL (fasting) CHLORIDE [MOLES/VOLU ME] IN SERUM OR PLASMA 102 mmol/L 100 - 110 07/15 Specimen Type: SERUM No comment entered. Ordering Provider: SEAN PARR Report Released Date/Time: Jul 04, 2024 02:01 PM Reporting Lab: [facility] TRN [facility] [address] [facility] [address] Performing Lab: [facility]ITALRL TRN [facility] [address] [facility] [address] [facility]PITALRLAUREL [facility] BASIC METABOLIC PANEL (fasting) CARBON DIOXIDE, TOTAL [MOLES/VOLU ME] IN SERUM OR PLASMA 27 meq/L 20 - 30 07/15 Specimen Type: SERUM No comment entered. Ordering Provider: FURCOLO,TIN A Report Released Date/Time: Jul 04, 2024 02:01 PM Reporting Lab: [facility] [address] [facility] [address] Performing Lab: [facility] [place] [facility] [address] [facility] [address] [place] [facility] BASIC METABOLIC PANEL (fasting) CREATININE [MASS/VOLUM E] IN SERUM OR PLASMA 1.22 mg/dL 0.50 - 1.40 07/15 Specimen Type: SERUM No comment entered. Ordering Provider: SEAN PARR Report Released Date/Time: Jul 04, 2024 02:01 PM Reporting Lab: [facility] [place] [facility] [address] [facility] [address] Performing Lab: [facility] [place] [facility] [address] [facility] [address] [facility] BASIC METABOLIC PANEL (fasting) GLOMERULAR FILTRATION RATE/1.73 SQ M.PREDICTED [VOLUME RATE/AREA] IN SERUM, PLASMA OR BLOOD BY CREATININE- BASED FORMULA (CKD-EPI 2020) 63 mL/min 60 07/15 Specimen Type: SERUM No comment entered. Ordering Provider: SEAN PARR Report Released Date/Time: Jul 04, 2024 02:01 PM Reporting Lab: [facility] [place] [facility] [address] [facility] [address] Performing Lab: [facility] [place] [facility] [address] [facility] [address] [facility] [place] [facility] LIVER FUNCTION PROTEIN [MASS/VOLUM E] IN SERUM OR PLASMA 6.7 g/dL 6.0 - 8.3 07/15 Specimen Type: SERUM No comment entered. Ordering Provider: SEAN PARR Report Released Date/Time: Jul 04, 2024 02:01 PM Reporting Lab: [facility] [place] [facility] [address] [facility] [address] Performing Lab: [facility] [address] [facility] [address] [facility] LIVER FUNCTION ALBUMIN [MASS/VOLUM E] IN SERUM OR PLASMA 3.7 g/dL 3.5 - 5.0 07/15 Specimen Type: SERUM No comment entered. Ordering Provider: SEAN PARR Report Released Date/Time: Jul 04, 2024 02:01 PM Reporting Lab: [facility] [place] [facility] [address] [facility] [address] Performing Lab: [facility] [place] [facility] [address] [facility] [address] [place] [facility] LIVER FUNCTION ALKALINE PHOSPHATASE [ENZYMATIC ACTIVITY/VO LUME] IN SERUM OR PLASMA 64 U/L 40 - 150 07/15 Specimen Type: SERUM No comment entered. Ordering Provider: SEAN PARR Report Released Date/Time: Jul 04, 2024 02:01 PM Reporting Lab: [facility] [place] [facility] [address] [facility] [address] Performing Lab: [facility] [place] [facility] [address] [facility] [address] [facility] [place] LIVER FUNCTION ASPARTATE AMINOTRANSF ERASE [ENZYMATIC ACTIVITY/VO LUME] IN SERUM OR PLASMA 20 U/L 5 - 34 07/15 Specimen Type: SERUM No comment entered. Ordering Provider: SEAN PARR Report Released Date/Time: Jul 04, 2024 02:01 PM Reporting Lab: [facility] [place] [facility] [address] [facility] [address] Performing Lab: [facility] [place] [facility] [address] [facility] [address] [facility] LIVER FUNCTION ALANINE AMINOTRANSF ERASE [ENZYMATIC ACTIVITY/VO LUME] IN SERUM OR PLASMA 17 U/L 07/15 Specimen Type: SERUM No comment entered. Ordering Provider: SEAN PARR Report Released Date/Time: Jul 04, 2024 02:01 PM Reporting Lab: [facility] [facility] [address] [facility] [address] Performing Lab: [facility] [place] [facility] [address] [facility] [address] [facility] LIVER FUNCTION BILIRUBIN.T OTAL [MASS/VOLUM E] IN SERUM OR PLASMA 0.6 mg/dL 0.2 - 1.2 07/15 Specimen Type: SERUM No comment entered. Ordering Provider: SEAN PARR Report Released Date/Time: Jul 04, 2024 02:01 PM Reporting Lab: [facility] [place] [address] [address] Performing Lab: [facility] [place] [facility] [address] [facility] [address] [facility] CBC LEUKOCYTES [#/VOLUME] IN BLOOD BY AUTOMATED COUNT 8.76 10*3/u L 4.50 - 11.00 07/15 Specimen Type: BLOOD No comment entered. Ordering Provider: SEAN PARR Report Released Date/Time: Jul 04, 2024 02:01 PM Reporting Lab: [facility] [address] [address] Performing Lab: [facility] [place] [facility] [address] [facility] [address] [facility] CBC ERYTHROCYTE S [#/VOLUME] IN BLOOD BY AUTOMATED COUNT 4.44 10*6/u L 4.23 - 5.66 07/15 Specimen Type: BLOOD No comment entered. Ordering Provider: SEAN PARR Report Released Date/Time: Jul 04, 2024 02:01 PM Reporting Lab: [facility] [address] [address] Performing Lab: [facility] [place] [facility] [address] [facility] [address] [facility] CBC HEMOGLOBIN [MASS/VOLUM E] IN BLOOD 13.8 g/dL 12.8 - 17 07/15 Specimen Type: BLOOD No comment entered. Ordering Provider: SEAN PARR Report Released Date/Time: Jul 04, 2024 02:01 PM Reporting Lab: [facility] [place] [address] [address] Performing Lab: [facility] [place] [facility] [address] [facility] [address] [facility] CBC HEMATOCRIT [VOLUME FRACTION] OF BLOOD BY AUTOMATED COUNT 40.7 39.2 - 50.4 07/15 Specimen Type: BLOOD No comment entered. Ordering Provider: SEAN PARR Report Released Date/Time: Jul 04, 2024 02:01 PM Reporting Lab: [facility] [place] [facility] [address] [facility] [address] Performing Lab: [facility] [place] [facility] [address] [facility] [address] [facility] CBC MCV [ENTITIC VOLUME] BY AUTOMATED COUNT 91.7 fL 82 - 99 07/15 Specimen Type: BLOOD No comment entered. Ordering Provider: SEAN PARR Report Released Date/Time: Jul 04, 2024 02:01 PM Reporting Lab: [facility] [place] [facility] [address] [facility] [address] Performing Lab: [facility] [facility] [address] [facility] [address] [facility] CBC MCHC [MASS/VOLUM E] BY AUTOMATED COUNT 33.9 g/dL 30.8 - 35.1 07/15 Specimen Type: BLOOD No comment entered. Ordering Provider: SEAN PARR Report Released Date/Time: Jul 04, 2024 02:01 PM Reporting Lab: [facility] [facility] [address] [facility] [address] Performing Lab: [facility] [facility] [address] [facility] [address] [facility] CBC PLATELETS [#/VOLUME] IN BLOOD BY AUTOMATED COUNT 270 10*3/u L 140 - 360 07/15 Specimen Type: BLOOD No comment entered. Ordering Provider: SEAN PARR Report Released Date/Time: Jul 04, 2024 02:01 PM Reporting Lab: [facility] [facility] [address] [facility] [address] Performing Lab: [facility] [facility] [address] [facility] [address] [facility] CBC ERYTHROCYTE DISTRIBUTIO N WIDTH [RATIO] BY AUTOMATED COUNT 12.5 12.0 - 16.0 07/15 Specimen Type: BLOOD No comment entered. Ordering Provider: SEAN PARR Report Released Date/Time: Jul 04, 2024 02:01 PM Reporting Lab: [facility] [address] [facility] [address] Performing Lab: [facility] [address] [facility] [address] [facility] CBC MCH [ENTITIC MASS] BY AUTOMATED COUNT 31.1 pg 26.2 - 32.6 07/15 Specimen Type: BLOOD No comment entered. Ordering Provider: SEAN PARR Report Released Date/Time: Jul 04, 2024 02:01 PM Reporting Lab: [facility] [facility] [address] [facility] [address] Performing Lab: [facility] [facility] [address] [facility] [address] [facility] Vital Signs Combined list of inpatient and outpatient Vital Signs from Department of Defense and Veterans Affairs, ranging from 12 months to all on record, depending upon the facility. Vital Sign Value Date Comments Source SYSTOLIC BLOOD PRESSURE 158 07/15/20 24 08:50:58 [facility] DIASTOLIC BLOOD PRESSURE 76 024 08:50:58 [facility] PULSE OXIMETRY 99 07/15/2024 08:50:58 [facility] WEIGHT 170 07/15/2024 08:50:58 [facility] BMI 27kg/m2 07/15/2024 08:50:58 [facility] PAIN 0 07/15/2024 08:50:58 [facility] TEMPERATURE 98.2 07/15/2024 08:50:58 [facility] PULSE 62 07/15/2024 08:50:58 [facility] RESPIRATION 16 07/15/2024 08:50:58 [facility] Encounters Combined list of: 1) Encounters from Department of Veterans Affairs facilities going back up to thelast 18 months. 2) Encounters from the Department of Defense facilities going back up to 280 months. Location Location Details Encounter Type Encounter Number Reason For Visit Attending Provider ADM Date DC Date Status Disposition Source [facility] FIT SPECTACLES MULTIFOCAL [id number] Diagnos is: ICD-10- CM H25.813 Combine d forms of age-rel ated catarac t, bilater al
MARTHA ALCARAZ 05/23 [facility] FIT SPECTACLES MULTIFOCAL [id number] Diagnos is: ICD-10- CM Z46.0 Encount er for fit/adj st of spectac les and contact lenses< br/> GAUDENCIO KAUFFMAN 05/23 [facility] En[facility] [id number] 06/18 [facility] [id number] 06/22 [facility] [id number] 06/27 [facility] [id number] 06/28 [facility] [id number] 07/03 [facility] OFF[facility] O/P NEW MOD 45-59 MIN [id number] Diagnos is: ICD-10- CM H91.93 Unspeci fied hearing loss, bilater al
AHMED,MOHA MMED JAWED 07/16 [facility] Out[facility] Encounter [id number] 10/25 [facility] OFF[facility] O/P NEW LOW 30 MIN [id number] Diagnos is: ICD-10- CM M20.10 Hallux valgus (acquir ed), unspeci fied foot
Cornel CELESTE AVID 11/07 [facility] Out[facility]counter [id number] Cornel CELESTE AVID 11/14 [facility]THOPEDIC [place] I [id number] Diagnos is: ICD-10- CM M20.10 Hallux valgus (acquir ed), unspeci fied foot
JOVAN TRUJILLO JESÚS 11/25 [facility] Out[facility] Encounter [id number] 06/10 [facility] OFF[facility] O/P EST LOW 20 MIN [id number] Diagnos is: ICD-10- CM M19.071 Primary osteoar thritis , right ankle and foot
MARY PADILLA D 06/10 [facility] Out[facility] Encounter [id number] 07/04 [facility] Out[facility] Encounter [id number] 07/15 [facility] OFF[facility] O/P EST MOD 30 MIN [id number] Diagnos is: ICD-10- CM H91.93 Unspeci fied hearing loss, bilater al
FURCOLO,TI NA 07/15 [facility] DIABETIC CUSTOM MOLDED SHOE [id number] Diagnos is: ICD-10- CM M19.071 Primary osteoar thritis , right ankle and foot
JOVAN TRUJILLO JESÚS 07/15 [facility] Out[facility]counter [id number] 07/15 [facility] Out[facility] Encounter [id number] 07/15 [facility] Social History Combined list of available smoking, tobacco, and other social history from Department of Defense and Veterans Affairs facilities. Social History Type Response Date Comment Sourc e Tobacco smoking status NHIS VA-TOBACCO QUIT 15 YRS OR MORE 07/15/2024 [facility] History of tobacco use VA-TOBACCO FORMER USER 07/15/2024 [facility] History of tobacco use VA-TOBACCO FORMER USER 06/22/2023 [facility] History of tobacco use QUIT TOBACCO USE > 7 YEARS AGO 12/23/2013 [place] Plan of Care List of future care activities from Department of Veterans Affairs facilities. Additional future care activities may be listed in the Assessment and Plan section. Date/Time Care Activity Care Activity Detail Facili ty 12/30/2024 AMBULATORY - MEDICINE [facility]
--- OUTSIDE RECORDS SUMMARY | 2024-09-30 11:50 | XMS_ITS ---
Author Name [facility] [place] Organization [facility] [place] Address [address] [place] [address] Care Team Providers Care Hanger Off Name Role Phone SHREYA PARR Primary Care Provider Unavailabl e Insurance Providers: All historical and current Section Date Range: From patient's date of to the date document was created. This section includes the names of all active insurance providers for the patient. Insurance Provider Type of Coverage Plan Name Start of Policy Coverage End of Policy Coverage Group Number Member ID Insurance Provider's Telephone Number Policy Rodrigues's Name Patient's Relationship to Policy Rodrigues [facility] MEDICARE SUPPLEMEN [employer]ER[employer] MEDEX BRONZ E Jul 18, 2019 [id number] GARCIA,PHI LIP PATIENT [facility] MEDICARE SUPPLEMEN [employer] MEDEX CORE Jul 18, 2016 [id number] GARCIA,PHI LIP PATIENT MEDICARE (WNR) MEDICARE (M) PART A Apr 17, 2016 PART A [id number] GARCIA,PHI LIP PATIENT MEDICARE (WNR) MEDICARE (M) PART B Apr 17, 2016 PART B [id number] GARCIA,PHI LIP PATIENT Selected Encounter This section includes the information on record at [place] for the Encounter. Date/Time Encounter Type Encounter Description Reason Pro vider Source Jun 10, 2024 12:01 AM Outpatient Encounter ADMIN PAT ACTIVTIES (MASNONCT) IHE Encounter Template Text not used by [place] Plan of Treatment: Future Appointments (+ 6 months) and Future Tests (+/- 45 days) The Plan of Treatment section includes future care activities for the patient from all [place] [facility] This section includes future appointments and future orders which are active, pending or scheduled. Future Appointments This section includes appointments that were scheduled to occur 6 months from the date of the Encounter, up to a maximum of 20 appointments. The data comes from all [facility] facilities. Appointment Date/Time Appointment Type Appointme nt Facility Name Jul 15, 2024 09:00 AM AMBULATORY - MEDICINE [facility] Jul 15, 2024 10:00 AM AMBULATORY MEDICINE [facility] Social History: Smoking Status (Most current) and Tobacco Use (All prior to encounter date) This section includes the most current, and the historical, smoking and tobacco- related health factors from the [place] facility where the Encounter took place. Current Smoking Status This section includes the most current smoking, or tobacco-related health factor, from the [place] facility where the Encounter took place. Date/Time Current Smoking Status Comment Facil ity Jun 22, 2023 04:23 PM VA-TOBACCO FORMER USER [facility] Tobacco Use History This section includes a history of the smoking, or tobacco-related health factors, that were collected on or before the date of the Encounter. The data comes from the [place] facility where the Encounter took place. Date/Time Smoking Status/Tobacco Use Comment F acility Jun 22, 2023 04:23 PM VA-TOBACCO QUIT 15 YRS OR MORE [facility] Encounter Notes: All associated encounter notes This section contains the clinical notes associated to the Encounter. Date/Time Encounter Note(s) Provider Source Jun 10, 2024 12:01 AM CLINICAL WARNING: LOCAL TITLE: COMMUNICATION AUTHORIZATION STANDARD TITLE: CLINICAL WARNING DATE OF NOTE: JUN 10, 2024@00:01 ENTRY DATE: JUN 13, 2024@08:46:48 AUTHOR: DEIRDRE MARVIN COSIGNER: URGENCY: STATUS: COMPLETED Family/Caregiver Name: Primary: ASCENCION SALCEDO- Secondary: DIANA PEPPER-OSMAN SON Tertiary: WHITNEY MILLS STEP SON Authorized Clinic & Topics: All Clinic's & Topics: All Care/Coordination Primary Care: All Care/Coordination Mental Health: All Care/Coordination Specialty Care: All Care/Coordination [id number] Protected Info: [ ] Drug Abuse [ ] Alcohol Abuse [ ] HIV [ ] Sickle Cell Expiration: Date: [ ] At [X] Through [ ] At end of care // DEIRDRE MARVIN Signed: 06/13/2024 08:47 DEIRDRE MARVIN [place] [facility]
--- OUTSIDE RECORDS SUMMARY | 2024-09-30 11:50 | XMS_ITS | Encounter Summary ---
Author Name [facility] [place] [facility] [place] Address [address] [place] [address] Care Team Providers Care Label Folder Name Role Phone SHREYA PARR Primary Care Provider [facility] Insurance Providers: All historical and current Section Date Range: From patient's date of to the date document was created. This section includes the names of all active insurance providers for the patient. Insurance Provider Type of Coverage Plan Name Start of Policy Coverage End of Policy Coverage Group Number Member ID Insurance Provider's Telephone Number Policy Rodrigues's Name Patient's Relationship to Policy Rodrigues [facility] MEDICARE SUPPLEMEN [employer]ER[employer] MEDEX BRONZ E Jul 18, 2019 [id number] GARCIA,PHI LIP PATIENT [facility] MEDICARE SUPPLE[employer] MEDEX CORE Jul 18, 2016 [id number] GARCIA,PHI LIP PATIENT MEDICARE (WNR) MEDICARE (M) PART A Apr 17, 2016 PART A [id number] GARCIA,PHI LIP PATIENT MEDICARE (WNR) MEDICARE (M) PART B Apr 17, 2016 PART B [id number] GARCIA,JOSE M LIP PATIENT Selected Encounter This section includes the information on record at [place] for the Encounter. Date/Time Encounter Type Encounter Description Reason Pro vider Source Jul 15, 2024 12:00 AM Outpatient Encounter EVENT (HISTORICAL) IHE Encounter Template Text not used by [place] Plan of Treatment: Future Appointments (+ 6 months) and Future Tests (+/- 45 days) The Plan of Treatment section includes future care activities for the patient from all [place] treatmentfacilities. This section includes future appointments and future orders which are active, pending or scheduled. Future Appointments This section includes appointments that were scheduled to occur 6 months from the date of the Encounter, up to a maximum of 20 appointments. The data comes from all [place] treatment facilities. Appointment Date/Time Appointment Type Appointme nt Facility Name Dec 30, 2024 10:30 AM AMBULATORY - MEDICINE [facility] Lab Results: +/- 30 days of the encounter This section includes the Chemistry and Hematology Lab Results on record with [place] for the patient. Radiology Reports and Pathology Reports are provided separately, in subsequent sections. Lab Results This section contains the Chemistry/Hematology Results that were resulted 30 days before or 30 daysafter the date of the Encounter. Date/Time Source Result Type Result - Unit Interpretation Reference Range Comment Jul 15, 2024 09:24 AM [facility] LIPID PANEL FASTING Specimen Type: SERUM No comment entered. Ordering Provider: SHREYA PARR Report Released Date/Time: Jul 04, 2024 02:01 PM Reporting Lab: [address] [address] Performing Lab: [address] [address] CHOLESTEROL 177 mg/dL TRIGLYCERIDE 72 mg/dL 0-150 LDL calculated 118 mg/dL 0-129 CHOL/HDL 3.9 HDL CHOLESTEROL 45 mg/dL 40-60 Jul 15, 2024 09:24 AM [facility] BASIC METABOLIC PANEL (fasting) Specimen Type: SERUM No comment entered. Ordering Provider: SHREYA PARR Report Released Date/Time: Jul 04, 2024 02:01 PM Reporting Lab: [address] [address] Performing Lab: [address] [address] UREA NITROGEN 23 mg/dL 7-25 GLUCOSE 83 mg/dL 65-100 SODIUM 137 mmol/L 135-145 POTASSIUM 4.3 mmol/L 3.5-5.0 CHLORIDE 102 mmol/L 100-110 CO2 27 meq/L 20-30 CREATININE, Serum 1.22 mg/dL 0.50-1.40 eGFR(CKD-EPI 2020) 63 mL/min >60 Jul 15, 2024 09:24 AM [facility] LIVER FUNCTION Specimen Type: SERUM No comment entered. Ordering Provider: SHREYA PARR Report Released Date/Time: Jul 04, 2024 02:01 PM Reporting Lab: [address] [address] Performing Lab: [address] [address] PROTEIN,TOTAL 6.7 g/dL 6.0-8.3 ALBUMIN 3.7 g/dL 3.5-5.0 ALKALINE PHOSPHATASE 64 U/L 40-150 AST 20 U/L 5-34 ALT 17 U/L BILIRUBIN, TOTAL 0.6 mg/dL 0.2-1.2 Jul 15, 2024 09:24 AM [facility] CBC Specimen Type: BLOOD No comment entered. Ordering Provider: SHREYA PARR Report Released Date/Time: Jul 04, 2024 02:01 PM Reporting Lab: [address] [address] Performing Lab: [address] [address] WBC 8.76 10*3/uL 4.50-11.00 RBC 4.44 10*6/uL 4.23-5.66 HGB 13.8 g/dL 12.8-17 HCT 40.7 39.2-50.4 MCV 91.7 fL 82-99 MCHC 33.9 g/dL 30.8-35.1 PLT 270 10*3/uL 140-360 RDW-CV 12.5 12.0-16.0 MCH 31.1 pg 26.2-32.6 Vital Signs: All taken on the encounter date This section contains inpatient and outpatient Vital Signs collected on the date of the Encounter. Date/Time Temperature Pulse Blood Pressure Respiratory Rate SP02 Pain Height Weight Body Mass Index Source Jul 15, 2024 09:19 AM 138/74 [place] [facility] [place] [facility] Jul 15, 2024 08:50 AM 98.2 62 158/76 16 99 0 170 27 [place] [facility] [facility] Social History: Smoking Status (Most current) and Tobacco Use (All prior to encounter date) This section includes the most current, and the historical, smoking and tobacco- related health factors from the [place] facility where the Encounter took place. Current Smoking Status This section includes the most current smoking, or tobacco-related health factor, from the [place] facility where the Encounter took place. Date/Time Current Smoking Status Comment Facil ity Jul 15, 2024 09:00 AM [facility] Tobacco Use History This section includes a history of the smoking, or tobacco-related health factors, that were collected on or before the date of the Encounter. The data comes from the [place] facility where the Encounter took place. Date/Time Smoking Status/Tobacco Use Comment F acility Jul 15, 2024 09:00 AM [place]-TOBACCO QUIT 15 YRS OR MORE [place] [facility] [place] [facility] Jun 22, 2023 04:23 PM VA-TOBACCO FORMER USER [place] [facility] [facility] Jun 22, 2023 04:23 PM [place]-TOBACCO QUIT 15 YRS OR MORE [place] [facility]
--- OUTSIDE RECORDS SUMMARY | 2024-09-30 11:50 | XMS_ITS ---
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 Name Role Phone SHREYA PARR Primary Care [...] Rodrigues's Name Patient's Relationship to Policy Rodrigues [facility] MEDICARE SUPPLEMEN [employer]ER[employer] MEDEX BRONZ E Jul 18, 2019 [id number] GARCIA,PHI LIP PATIENT [facility] MEDICARE SUPPLEMEN [employer]ER[employer] MEDEX CORE Jul 18, 2016 [id number] [phone] GARCIA,PHI LIP PATIENT MEDICARE (WNR) MEDICARE (M) PART A Apr 17, 2016 PART A [id number] GARCIA,PHI LIP PATIENT MEDICARE (WNR) MEDICARE (M) PART B Apr 17, 2016 PART B [id number] GARCIA,PHI LIP PATIENT Selected Encounter This section includes the information on record at [place] for the Encounter. Date/Time Encounter Type Encounter Description Reason Pro vider Source Jul 15, 2024 10:55 AM Outpatient Encounter ADMIN PAT ACTIVTIES (MASNONCT) IHE Encounter Template Text not used by [place] Plan of Treatment: Future Appointments (+ 6 months) and Future Tests (+/- 45 days) The Plan of Treatment section includes future care activities for the patient from all [place] [facility]. This section includes future appointments and future orders which are active, pending or scheduled. Future Appointments This section includes appointments that were scheduled to occur 6 months from the date of the Encounter, up to a maximum of 20 appointments. The data comes from all [place] treatment facilities. Appointment Date/Time Appointment Type Appointme nt Facility Name Dec 30, 2024 10:30 AM AMBULATORY - MEDICINE [facility] Lab Results: +/- 30 days of the encounter This section includes the Chemistry and Hematology Lab Results on record with [place] for the patient. Radiology Reports and Pathology Reports are provided separately, in subsequent sections. Lab Results This section contains the Chemistry/Hematology Results that were resulted 30 days before or 30 daysafter the date of the Encounter. Date/Time Source Result Type Result - Unit Interpretation Reference Range Comment Jul 15, 2024 09:24 AM [facility] LIPID PANEL FASTING Specimen Type: SERUM No comment entered. Ordering Provider: SHREYA PARR Report Released Date/Time: Jul 04, 2024 02:01 PM Reporting Lab: [facility] [address] [facility] [address] Performing Lab: [address] [address] CHOLESTEROL 177 mg/dL TRIGLYCERIDE 72 mg/dL 0-150 LDL calculated 118 mg/dL 0-129 CHOL/HDL 3.9 HDL CHOLESTEROL 45 mg/dL 40-60 Jul 15, 2024 09:24 AM [facility] LIVER FUNCTION Specimen Type: SERUM No comment entered. Ordering Provider: SHREYA PARR Report Released Date/Time: Jul 04, 2024 02:01 PM Reporting Lab: [address] [address] Performing Lab: [address] [address] PROTEIN,TOTAL 6.7 g/dL 6.0-8.3 ALBUMIN 3.7 g/dL 3.5-5.0 ALKALINE PHOSPHATASE 64 U/L 40-150 AST 20 U/L 5-34 ALT 17 U/L BILIRUBIN, TOTAL 0.6 mg/dL 0.2-1.2 Jul 15, 2024 09:24 AM [facility] BASIC METABOLIC PANEL (fasting) Specimen Type: SERUM No comment entered. Ordering Provider: SHREYA PARR Report Released Date/Time: Jul 04, 2024 02:01 PM Reporting Lab: [address] [address] Performing Lab: [address] [address] UREA NITROGEN 23 mg/dL 7-25 GLUCOSE 83 mg/dL 65-100 SODIUM 137 mmol/L 135-145 POTASSIUM 4.3 mmol/L 3.5-5.0 CHLORIDE 102 mmol/L 100-110 CO2 27 meq/L 20-30 CREATININE, Serum 1.22 mg/dL 0.50-1.40 eGFR(CKD-EPI 2020) 63 mL/min >60 Jul 15, 2024 09:24 AM [facility] CBC Specimen Type: BLOOD No comment entered. Ordering Provider: SHREYA PARR Report Released Date/Time: Jul 04, 2024 02:01 PM Reporting Lab: [facility] [address] [facility] [address] Performing Lab: [address] [address] WBC 8.76 10*3/uL 4.50-11.00 RBC 4.44 10*6/uL [...] Source Jul 15, 2024 09:19 AM 138/74 [place] [facility] [place] [facility] Jul 15, 2024 08:50 AM 98.2 62 158/76 16 99 0 170 27 [facility] Social History: Smoking Status (Most current) and Tobacco Use (All prior to encounter date) This section includes the most current, and the historical, smoking and tobacco- related health factors from the [place] facility where the Encounter took place. Current Smoking Status This section includes the most current smoking, or tobacco-related health factor, from the [place] facility where the Encounter took place. Date/Time Current Smoking Status Comment Facil ity Jul 15, 2024 09:00 AM [place]-TOBAC[place] FORMER USER [facility] Tobacco Use History This section includes a history of the smoking, or tobacco-related health factors, that were collected on or before the date of the Encounter. The data comes from the [place] facility where the Encounter took place. Date/Time Smoking Status/Tobacco Use Comment F acility Jul 15, 2024 09:00 AM VA-TOBACCO QUIT 15 YRS OR MORE [place] [facility] Jun 22, 2023 04:23 PM [place]-TOBACCO FORMER USER [place] [facility] Jun 22, 2023 04:23 PM [place]-TO[place]ACCO QUIT 15 YRS OR MORE [facility] Encounter Notes: All associated encounter notes This section contains the clinical notes associated to the Encounter. Date/Time Encounter Note(s) Provider Source Jul 15, 2024 11:29 AM ADDENDUM: LOCAL TITLE: Addendum STANDARD TITLE: ADDENDUM DATE OF NOTE: JUL 15, 2024@11:29:49 ENTRY DATE: JUL 15, 2024@11:29:49 AUTHOR: LUCILA GUIDRY EXP COSIGNER: URGENCY: STATUS: COMPLETED Spoke to , he was seen by PCP earlier this morning, forgot to mention cough. He reports cough productive of yellow/green mucous X 4-5 days, Cough worsening with sleep, keeps him awake. He denies fever, SOB and chest pain. no other SXS. Requesting cough medicine ordered by PCP /moreno/ LUCILA E GUIDRY, RN REGISTERED NURSE Signed: 07/15/2024 11:31 Receipt Acknowledged By: 07/15/2024 12:30 /es/ SHREYA PARR D.O. PHYSICIAN === --- Original Document --- 07/15/24 CCC: SCHEDULING ADMINISTRATION: Patient Demographics Patient Name: JOSE ROBERTO GARCIA Patient Primary Phone: [phone] Patient Primary Address: [address] [place] [address] [place] [address] Patient : 1950 Patient Age: 74 Call Back Number: [phone] Caller/Recipient Relation to Patient: Self Administrative Administrative Note Reason: Other Administrative Note Comments: PT STATES HE WAS JUST SEEN BY PROVIDER AND FORGOT TO ASK FOR COUGH MEDICINE. PT REQUESTING A RETURN CALL PLEASE IMPORTANT: This note was created by [facility] staff. Please do not alert the staff member by adding them as a signer for future communications. Alerts are not monitored by this user. /moreno/ KD CALDERA 1 [facility] AMSA Signed: 07/15/2024 10:55 Receipt Acknowledged By: * AWAITING SIGNATURE * SUMANTH URBAN 07/15/2024 11:29 /moreno/ LUCILA GUIDRY RN REGISTERED NURSE LUCILA GUIDRY [place] [place] [facility] Jul 15, 2024 10:55 AM ADMINISTRATIVE NOTE: LOCAL TITLE: CCC: SCHEDULING ADMINISTRATION STANDARD TITLE: ADMINISTRATIVE NOTE DATE OF NOTE: JUL 15, 2024@10:55:09 ENTRY DATE: JUL 15, 2024@10:55:10 AUTHOR: KD BORRERO COSIGNER: URGENCY: STATUS: COMPLETED CCC: SCHEDULING ADMINISTRATION Has ADDENDA Patient Demographics Patient Name: JOSE ROBERTO GARCIA Patient Primary Phone: [phone] Patient Primary Address: [address] [place] [address] [place] [address] Patient : 1950 Patient Age: 74 Call Back Number: [phone] Caller/Recipient Relation to Patient: Self Administrative Administrative Note Reason: Other Administrative Note Comments: PT STATES HE WAS JUST SEEN BY PROVIDER AND FORGOT TO ASK FOR COUGH MEDICINE. PT REQUESTING A RETURN CALL PLEASE IMPORTANT: This note was created by [facility] staff. Please do not alert the staff member by adding them as a signer for future communications. Alerts are not monitored by this user. /moreno/ KD BORRERO VISN 1 [facility] AMSA Signed: 07/15/2024 10:55 Receipt Acknowledged By: 07/15/2024 13:44 /es/ SUMANTH URBAN LPN License Practical Nurse 07/15/2024 11:29 /es/ LUCILA GUIDRY, MONTY REGISTERED NURSE 07/15/2024 ADDENDUM STATUS: COMPLETED Spoke to , he was seen by PCP earlier this morning, forgot to mention cough. He reports cough productive of yellow/green mucous X 4-5 days, Cough worsening with sleep, keeps him awake. He denies fever, SOB and chest pain. no other SXS. Requesting cough medicine ordered by PCP /moreno/ LUCILA GUIDRY, MONTY REGISTERED NURSE Signed: 07/15/2024 11:31 Receipt Acknowledged By: 07/15/2024 12:30 /moreno/ SHREYA PARR D.O. PHYSICIAN KD BORRERO [facility]
--- OUTSIDE RECORDS SUMMARY | 2024-09-30 11:50 | XMS_ITS | Encounter Summary ---
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 Name Role Phone SHREYA PARR Primary Care Provider [facility] Insurance Providers: All historical and current [...] Rodrigues's Name Patient's Relationship to Policy Rodrigues [facility] MEDICARE SUPPLEMEN RODERICK MEDEX BRONZ E Jul 18, 2019 [id number] GARCIA,PHI LIP PATIENT [facility] MEDICARE SUPPLEMEN RODERICK MEDEX CORE Jul 18, 2016 [id number] GARCIA,PHI LIP PATIENT MEDICARE (WNR) MEDICARE (M) PART A Apr 17, 2016 PART A [id number] GARCIA,PHI LIP PATIENT MEDICARE (WNR) MEDICARE (M) PART B Apr 17, 2016 PART B [id number] GARCIA,PHI LIP PATIENT Selected Encounter This section includes the information on record at [place] for the Encounter. Date/Time Encounter Type Encounter Description Reason Provider Source Jul 15, 2024 09:00 AM OFFICE O/P EST MOD 30 MIN PRIMARY CARE/MEDICINE ICD-10-CM H91.93 Unspecified hearing loss, bilateral FURCOLO,SHREYA IHE Encounter Template Text not used by [place] Assessments - Encounter Diagnoses This section includes the primary and secondary diagnoses documented for the Encounter. Date/Time Primary/Secondary Diagnosis Diagnosis Name Provider Source Jul 15, 2024 09:21 AM PRIMARY Unspecified hearing loss, bilateral FURCOLO,SHREYA [facility] [place] [facility] Jul 15, 2024 09:21 AM SECONDARY Low back pain, unspecified FURCOLO,SHREYA [facility] [place] [facility] Jul 15, 2024 09:21 AM SECONDARY Radiculopathy, cervical region FURCOLO,SHREYA [facility] [place] [facility] Jul 15, 2024 09:21 AM SECONDARY Tinnitus, bilateral FURCOLO,SHREYA [facility] [place] [facility] Jul 15, 2024 09:21 AM SECONDARY Unspecified osteoarthritis, unspecified site FURCOLO,SHREYA [facility] [place] [facility] Plan of Treatment: Future Appointments (+ 6 months) and Future Tests (+/- 45 days) The Plan of Treatment section includes future care activities for the patient from all [place] treatmentfacilities. This section includes future appointments and future orders which are active, pending or scheduled. Future Appointments This section includes appointments that were scheduled to occur 6 months from the date of the Encounter, up to a maximum of 20 appointments. The data comes from all [place] treatment facilities. Appointment Date/Time Appointment Type Appointme nt Facility Name Dec 30, 2024 10:30 AM AMBULATORY - MEDICINE [facility] Lab Results: +/- 30 days of the encounter This section includes the Chemistry and Hematology Lab Results on record with [place] for the patient. Radiology Reports and Pathology Reports are provided separately, in subsequent sections. Lab Results This section contains the Chemistry/Hematology Results that were resulted 30 days before or 30 daysafter the date of the Encounter. Date/Time Source Result Type Result - Unit Interpretation Reference Range Comment Jul 15, 2024 09:24 AM [place] [facility] LIPID PANEL FASTING Specimen Type: SERUM No comment entered. Ordering Provider: SHREYA PARR Report Released Date/Time: Jul 04, 2024 02:01 PM Reporting Lab: [facility] [address] [facility] [address] Performing Lab: [address] [address] CHOLESTEROL 177 mg/dL TRIGLYCERIDE 72 mg/dL 0-150 LDL calculated 118 mg/dL 0-129 CHOL/HDL 3.9 HDL CHOLESTEROL 45 mg/dL 40-60 Jul 15, 2024 09:24 AM [facility] BASIC METABOLIC PANEL (fasting) Specimen Type: SERUM No comment entered. Ordering Provider: SHREYA PARR Report Released Date/Time: Jul 04, 2024 02:01 PM Reporting Lab: [facility] [address] [facility] [address] Performing Lab: [address] [address] UREA NITROGEN 23 mg/dL 7-25 GLUCOSE 83 mg/dL 65-100 SODIUM 137 mmol/L 135-145 POTASSIUM 4.3 mmol/L 3.5-5.0 CHLORIDE 102 mmol/L 100-110 CO2 27 meq/L 20-30 CREATININE, Serum 1.22 mg/dL 0.50-1.40 eGFR(CKD-EPI 2020) 63 mL/min >60 Jul 15, 2024 09:24 AM [facility] LIVER FUNCTION Specimen Type: SERUM No comment entered. Ordering Provider: SHREYA PARR Report Released Date/Time: Jul 04, 2024 02:01 PM Reporting Lab: [address] [address] Performing Lab: [address] [address] PROTEIN,TOTAL 6.7 g/dL 6.0-8.3 ALBUMIN 3.7 g/dL 3.5-5.0 ALKALINE PHOSPHATASE 64 U/L 40-150 AST 20 U/L 5-34 ALT 17 U/L BILIRUBIN, TOTAL 0.6 mg/dL 0.2-1.2 Jul 15, 2024 09:24 AM [facility] CBC Specimen Type: BLOOD No comment entered. Ordering Provider: SHREYA PARR Report Released Date/Time: Jul 04, 2024 02:01 PM Reporting [facility]: [facility] [address] [facility] [address] Performing Lab: [facility] [address] [facility] [address] WBC 8.76 10*3/uL 4.50-11.00 RBC 4.44 10*6/uL [...] Source Jul 15, 2024 09:19 AM 138/[facility] Jul 15, 2024 08:50 AM 98.2 62 158/76 16 99 0 170 27 [facility] Social History: Smoking Status (Most current) and Tobacco Use (All prior to encounter date) This section includes the most current, and the historical, smoking and tobacco- related health factors from the [place] facility where the Encounter took place. Current Smoking Status This section includes the most current smoking, or tobacco-related health factor, from the [place] facility where the Encounter took place. Date/Time Current Smoking Status Comment Marina ity Jul 15, 2024 09:00 AM [place]-TOBACCO QUIT 15 YRS OR MORE [facility] Tobacco Use History This section includes a history of the smoking, or tobacco-related health factors, that were collected on or before the date of the Encounter. The data comes from the [place] facility where the Encounter took place. Date/Time Smoking Status/Tobacco Use Comment F acility Jul 15, 2024 09:00 AM [place]-TOBACCO QUIT 15 YRS OR MORE [facility] Jun 22, 2023 04:23 PM [facility] Jun 22, 2023 04:23 PM VA-TOBACCO QUIT 15 YRS OR MORE [facility] Encounter Notes: All associated encounter notes This section contains the clinical notes associated to the Encounter. Date/Time Encounter Note(s) Provider Source Jul 15, 2024 11:10 AM LETTERS: LOCAL TITLE: PATIENT LETTER (T) STANDARD TITLE: LETTERS DATE OF NOTE: JUL 15, 2024@11:10 ENTRY DATE: JUL 15, 2024@11:11 AUTHOR: SHREYA PARR COSIGNER: URGENCY: STATUS: COMPLETED [facility] Toll Free Number Primary Care Telephone Assistance can be reached at extension [phone] [facility] scheduling can be reached at extension [phone] [facility] scheduling can be reached at ext [phone] JOSE ROBERTO GARCIA [address] [place] [address] DR. GORE, [place], [id number] Dear [place], Your recent test results are as follows: Normal blood counts. No anemia. Normal blood sugar. Normal kidney function and electrolytes. Normal liver function. Normal cholesterol. LAB CHEMISTRY & HEMATOLOGY Collection DT Specimen Test Name Result Units Ref Range 07/15/2024 09:24 BLOOD WBC 8.76 K/cmm 4.50 - 11.00 RBC 4.44 M/cmm 4.23 - 5.66 HGB 13.8 g/dL 12.8 - 17 HCT 40.7 % 39.2 - 50.4 MCV 91.7 fl 82 - 99 MCH 31.1 pg 26.2 - 32.6 MCHC 33.9 g/dL 30.8 - 35.1 RDW-CV 12.5 % 12.0 - 16.0 PLT 270 K/cmm 140 - 360 07/15/2024 09:24 SERUM CREATININE, Serum 1.22 mg/dL 0.50 - 1.40 eGFR(CKD-EPI 2020 63 mL/min Ref: >=60 SODIUM 137 mmol/L 135 - 145 POTASSIUM 4.3 mmol/L 3.5 - 5.0 CHLORIDE 102 mmol/L 100 - 110 CO2 27 mEq/L 20 - 30 UREA NITROGEN 23 mg/dL 7 - 25 GLUCOSE 83 mg/dL 65 - 100 PROTEIN,TOTAL 6.7 g/dL 6.0 - 8.3 ALBUMIN 3.7 g/dL 3.5 - 5.0 ALK JORGE 64 U/L 40 - 150 AST 20 U/L 5 - 34 BILIRUBIN, TOTAL 0.6 mg/dL 0.2 - 1.2 CHOLESTEROL 177 mg/dL <7 - 199 TRIGLYCERIDE 72 mg/dL 0 - 150 LDL calculated 118 mg/dL 0 - 129 CHOL/HDL 3.9 ALT 17 U/L <6 - 55 HDL CHOLESTEROL 45 mg/dL 40 - 60 Please call if you have any questions or concerns. Upcoming Appointments: 12/24/2024 15:00 NHM/OPTOMETRY/BORASKI 06/11/2025 10:00 CWM/NO/PODIATRY A 07/16/2025 10:00 CWM/NO/PACT EIGHT Sincerely, Your Primary Care Team [facility] [address] [address] [place] [address] [phone] [facility] [address] [place] [address] [place] [address] [facility] [address] [facility] [place] [phone] [place] [address] [facility] [place] [facility] [place] [facility] Jul 15, 2024 08:56 AM PREVENTIVE MEDICIN E NURSING NOTE: LOCAL TITLE: CLINICAL REMINDERS/NURSING STANDARD TITLE: PREVENTIVE MEDICINE NURSING NOTE DATE OF NOTE: JUL 15, 2024@08:56 ENTRY DATE: JUL 15, 2024@08:56:38 AUTHOR: SUMANTH URBAN EXP COSIGNER: URGENCY: STATUS: COMPLETED Advance Directive Screen MH AD: Patient has an up-to-date Advance Directive at an outside, non-va facility and was asked to forward a copy to his/her clinician. Suicide Screen: C-SSRS Screening [place] Suicide Severity Rating Scale (C-SSRS) screener 1. Over the past month, have you wished you were or wished you could go to sleep and not wake up? No 2. Over the past month, have you had any actual thoughts of killing yourself? No 3. Over the past month, have you been thinking about how you might do this? Response not required due to responses to other questions. 4. Over the past month, have you had these thoughts and had some intention of acting on them? Response not required due to responses to other questions. 5. Over the past month, have you started to work out or worked out the details of how to kill yourself? Response not required due to responses to other questions. 6. If yes, at any time in the past month did you intend to carry out this plan? Response not required due to responses to other questions. 7. In your lifetime, have you ever done anything, started to do anything, or prepared to do anything to end your life (for example, collected pills, obtained a gun, gave away valuables, went to the roof but didn't jump)? No 8. If YES, was this within the past 3 months? Response not required due to responses to other questions. Homelessness/Food Insecurity Screen: In the past 2 months, have you been living in stable housing that you own, rent, or stay in as part of a household? Yes - Living in stable housing. Are you worried or concerned that in the next 2 months you may NOT have stable housing that you own, rent, or stay in as part of a household? No - Not worried about housing near future The reports the following: Within the past 12 months, you worried whether your food would run out before you got money to buy more. Never true Within the past 12 months, the food you bought just didn't last and you didn't have money to get more. Never true Depression Screening: Perform PHQ-2 A PHQ-2 screen was performed. The score was 0 which is a negative screen for depression. Over the past two weeks, how often have you been bothered by the following problems? 1. Little interest or pleasure in doing things Not at all 2. Feeling down, depressed, or hopeless Not at all Pneumococcal Conjugate Vaccine (PCV15/PCV20): Refuses PCV vaccine Immunization: PNEUMOCOCCAL CONJUGATE, UNSPECIFIED FORMULATION Refusal Reason: PATIENT DECISION Patient refuses all immunization(s) in the PneumoPCV group Date Documented: 07/15/24 08:57 Tobacco Use Screening: The patient is a former tobacco user. The patient quit fifteen or more years ago. Influenza Immunization: Deferral / Refusal The patient declines to receive the recommended dose of seasonal influenza vaccine. Immunization: INFLUENZA, UNSPECIFIED FORMULATION Refusal Reason: PATIENT DECISION Patient refuses all immunization(s) in the FLU group Date Documented: 07/15/24 08:57 Alcohol Use Screen (AUDIT-C): Alcohol Screen: SCREEN FOR ALCOHOL (AUDIT-C) An alcohol screening test (AUDIT-C) was negative (score=2). 1. How often did you have a drink containing alcohol in the past year? Consider a drink to be a 12 ounce can or bottle of regular beer, 8 ounces of malt liquor, a 5 ounce glass of table wine, or a 1.5 ounce shot of liquor (like scotch, gin, or vodka). Two to four times a month 2. How many drinks containing alcohol did you have on a typical day when you were drinking in the past year? One or two drinks 3. How often did you have six or more drinks on one occasion in the past year? Never COVID-19 Immunization: Refused Moderna Monovalent COVID-19 vaccine Immunization: COVID-19 (MODERNA), MRNA, LNP-S, PF, 50 MCG/0.5 ML (AGES 12+ YEARS) Refusal Reason: PATIENT DECISION Patient refuses all immunization(s) in the COVID-19 group Date Documented: 07/15/24 08:58 Tdap Immunization: The patient declines to receive the recommended dose of Tdap vaccine. Immunization: TDAP Refusal Reason: PATIENT DECISION Patient refuses all immunization(s) in the TDAP group Date Documented: 07/15/24 08:58 Herpes Zoster (Shingles) Vaccine: The patient declines to receive the recommended dose of zoster (shingles) vaccine. Immunization: ZOSTER RECOMBINANT Refusal Reason: PATIENT DECISION Patient refuses all immunization(s) in the ZOSTER group Date Documented: 07/15/24 08:58 /moreno/ SUMANTH URBAN LPN License Practical Nurse Signed: 07/15/2024 08:59 SUMANTH URBAN [facility] [place] [facility] Jul 15, 2024 08:46 AM PHYSICIAN NOTE: LOCAL TITLE: MD NOTE STANDARD TITLE: PHYSICIAN NOTE DATE OF NOTE: JUL 15, 2024@08:46 ENTRY DATE: JUL 15, 2024@08:46:52 AUTHOR: SHREYA PARR COSIGNER: URGENCY: STATUS: COMPLETED GARCIAJOSE ROBERTO is a 74 year old WHITE MALE who is being seen today in primary care for routine follow up. ==== CARE TEAM ==== Community Primary Care Provider: Dr. Monae, [facility] Specialists: audiology optometry podiatry Community Specialists: rheumatology- ATC, Dr. 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 ==== RELEVANT PAST MEDICAL HISTORY ==== Active problems - Computerized Problem List is the source for the followin. Bilateral hearing loss 2. Bilateral tinnitus 3. Osteoarthritis 4. Cervical radiculopathy 5. Low back pain 6. 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 Active and Recently Outpatient Medications (excluding Supplies): No Medications Found ==== REVIEW OF SYMPTOMS ==== POSITIVE FOR: NEGATIVE FOR: CONSTITUTION: no weight loss/gain, fatigue, fevers, night sweats HEENT: no vision problems, hearing loss,swallowing difficulties, sinus pain CV: no chest pain, palpitations, dyspnea on exertion, orthopnea RESP: no cough, shortness of breath, wheezing GI: no abdominal pain, N/V/D, constipation, blood in stool, normal appetite : no urinary frequency, nocturia, hematuria MUSC: no joint pain, joint swelling, muscle aches NEURO: no headaches, dizziness, memory loss, tremor, weakness PSYCH: no depression, anxiety, suicidal or homicidal thoughts SKIN: no rash, new skin lesions ==== PHYSICAL EXAM ==== Vitals: - - - - - - - B/P: 158/76 (07/15/2024 08:50)- repeat imporved pulse: 62 (07/15/2024 08:50) resp: 16 (07/15/2024 08:50) temp: 98.2 F [36.8 C] (07/15/2024 08:50) Ht: 66 in [167.6 cm] (07/16/2023 08:46) Wgt: 170 lb [77.11 kg] (07/15/2024 08:50) BMI: BMI: 27.5 Exam: - - - - - - - General: A&O x 3, no acute distress, normal affect and mood Neck: normal thyroid, normal carotids- no bruits CV: RRR S1S2, no murmur Resp: LCTA bilat, no wheezing, rales or rhonchi Neuro: grossly intact, no visible tremor, normal memory and speech Extremities: normal movement of extremities, normal gait, normal strength no LE edema ==== RECENT LABS ==== will do today ==== ASSESSMENT AND PLAN ==== Active problems - Computerized Problem List is the source for the followin. Bilateral hearing loss- sees audiology 2. Bilateral tinnitus 3. Osteoarthritis- takes naproxen BID- sees ATC Dr. Rivas yearly 4. Cervical radiculopathy- s/p cervical fusion over 15 years ago 5. Low back pain- walks 5 miles/day with his dog and , active 6. History of male erectile disorder ==== HEALTH MAINTENANCE ==== Colonoscopy - has had a few colonoscopies, all normal, now does cologard 2022 through outside PCP Abdominal Aortic Aneurysm Screening- 07/2023- negative Prostate screening - n/a Tetanus: due every 10 years Pneumonia Vacccine: Flu Vaccine: due yearly Covid Vaccine: due yearly ==== FOLLOW UP ==== f/u in 1 year VISIT TYPE: a MODERATE complexity visit where 30 minutes was spent in direct patient care, review of records and documentation. Upcoming Appointments: 07/15/2024 10:00 NHM/PODIATRY SHOE FITTING 12/24/2024 15:00 NHM/OPTOMETRY/BORASKI 06/11/2025 10:00 CWM/NO/PODIATRY A Medication Reconciliation: Outpatient: Has the patient been taking medications as documented in the EMLR? YES: The patient has been taking medications as documented in the EMLR. Essential Medication List for Review used to complete this medication reconciliation. INCLUDED IN THIS LIST: Alphabetical list of active outpatient prescriptions dispensed from this [place] (local) and dispensed from another [place] or [place]D facility (remote) as well as inpatient orders (local, pending and active), local clinic medications, locally documented non-VA medications, and local prescriptions that have or been discontinued in the past 90 days. - All changes in medications, including all non-VA/Herbal/OTC medications were entered into CPRS. - If there were any medications the patient should no longer take, they were discontinued. - The patient/caregiver was instructed to update this list, discard old lists, and take this list to the next appointment, whether with a VA or non-VA provider. Follow Up Colonoscopy: Colonoscopy is due based on information available to this reminder. Prior/outside Colonoscopy results: cologard Date: September 17, 2022 Average risk screening reminder set 1 year from JUL 15, 2024. Comment: given fit kit /es/ SHREYA PARR D.O. PHYSICIAN Signed: 07/15/2024 09:21 SHREYA PARR [place] [facility]
--- OUTSIDE RECORDS SUMMARY | 2024-09-30 11:50 | XMS_ITS | Encounter Summary ---
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 Name Role Phone SHREYA PARR Primary [facility] Insurance Providers: All historical [...] Rodrigues's Name Patient's Relationship to Policy Rodrigues [facility] MEDICARE SUPPLEMEN RODERICK MEDEX BRONZ E Jul 18, 2019 [id number] [phone] GARCIAJOSE M LIP PATIENT [facility] MEDICARE SUPPLEMEN RODERICK MEDEX CORE Jul 18, 2016 [id number] GARCIA,PHI LIP PATIENT MEDICARE (WNR) MEDICARE (M) PART A Apr 17, 2016 PART A [id number] GARCIA,PHI LIP PATIENT MEDICARE (WNR) MEDICARE (M) PART B Apr 17, 2016 PART B [id number] GARCIAJOSE M LIP PATIENT Selected Encounter This section includes the information on record at [place] for the Encounter. Date/Time Encounter Type Encounter Description Reason Pro vider Source Jul 04, 2024 01:35 PM Outpatient Encounter PRIMARY CARE/MEDICINE IHE Encounter Template Text not used by [place] Plan of Treatment: Future Appointments (+ 6 months) and Future Tests (+/- 45 days) The Plan of Treatment section includes future care activities for the patient from all [place] [facility]. This section includes future appointments and future orders which are active, pending or scheduled. Future Appointments This section includes appointments that were scheduled to occur 6 months from the date of the Encounter, up to a maximum of 20 appointments. The data comes from all [place] treatment facilities. Appointment Date/Time Appointment Type Appointme nt Facility Name Jul 15, 2024 09:00 AM AMBULATORY - [facility]ICINE [facility] Jul 15, 2024 10:00 AM AMBULATORY MEDICINE [facility] Dec 30, 2024 10:30 AM AMBULATORY MEDICINE [facility] Lab Results: +/- 30 days of the encounter This section includes the Chemistry and Hematology Lab Results on record with [place] for the patient. Radiology Reports and Pathology Reports are provided separately, in subsequent sections. Lab Results This section contains the Chemistry/Hematology Results that were resulted 30 days before or 30 daysafter the date of the Encounter. Date/Time Source Result Type Result - Unit Interpretation Reference Range Comment Jul 15, 2024 09:24 AM [facility] LIPID PANEL FASTING Specimen Type: SERUM No comment entered. Ordering Provider: SHREYA PARR Report Released Date/Time: Jul 04, 2024 02:01 PM Reporting Lab: [address] [address] Performing Lab: [address] [address] CHOLESTEROL 177 mg/dL TRIGLYCERIDE 72 mg/dL 0-150 LDL calculated 118 mg/dL 0-129 CHOL/HDL 3.9 HDL CHOLESTEROL 45 mg/dL 40-60 Jul 15, 2024 09:24 AM [facility] BASIC METABOLIC PANEL (fasting) Specimen Type: SERUM No comment entered. Ordering Provider: SHREYA PARR Report Released Date/Time: Jul 04, 2024 02:01 PM Reporting Lab: [address] [address] Performing Lab: [address] [address] UREA NITROGEN 23 mg/dL 7-25 GLUCOSE 83 mg/dL 65-100 SODIUM 137 mmol/L 135-145 POTASSIUM 4.3 mmol/L 3.5-5.0 CHLORIDE 102 mmol/L 100-110 CO2 27 meq/L 20-30 CREATININE, Serum 1.22 mg/dL 0.50-1.40 eGFR(CKD-EPI 2020) 63 mL/min >60 Jul 15, 2024 09:24 AM [facility] LIVER FUNCTION Specimen Type: SERUM No comment entered. Ordering Provider: SHREYA PARR Report Released Date/Time: Jul 04, 2024 02:01 PM Reporting Lab: [address] [address] Performing Lab: [address] [address] PROTEIN,TOTAL 6.7 g/dL 6.0-8.3 ALBUMIN 3.7 g/dL 3.5-5.0 ALKALINE PHOSPHATASE 64 U/L 40-150 AST 20 U/L 5-34 ALT 17 U/L BILIRUBIN, TOTAL 0.6 mg/dL 0.2-1.2 Jul 15, 2024 09:24 AM [facility] CBC Specimen Type: BLOOD No comment entered. Ordering Provider: SHREYA PARR Report Released Date/Time: Jul 04, 2024 02:01 PM Reporting Lab: [address] [address] Performing Lab: [address] [address] WBC 8.76 10*3/uL 4.50-11.00 RBC 4.44 10*6/uL 4.23-5.66 HGB 13.8 g/dL 12.8-17 HCT 40.7 39.2-50.4 MCV 91.7 fL 82-99 MCHC 33.9 g/dL 30.8-35.1 PLT 270 10*3/uL 140-360 RDW-CV 12.5 12.0-16.0 MCH 31.1 pg 26.2-32.6 Social History: Smoking Status (Most current) and Tobacco Use (All prior to encounter date) This section includes the most current, and the historical, smoking and tobacco- related health factors from the [place] facility where the Encounter took place. Current Smoking Status This section includes the most current smoking, or tobacco-related health factor, from the [place] facility where the Encounter took place. Date/Time Current Smoking Status Comment Facil ity Jun 22, 2023 04:23 PM [place]-TOBACCO QUIT 15 YRS OR MORE [facility] Tobacco Use History This section includes a history of the smoking, or tobacco-related health factors, that were collected on or before the date of the Encounter. The data comes from the [place] facility where the Encounter took place. Date/Time Smoking Status/Tobacco Use Comment F acility Jun 22, 2023 04:23 PM [place]-TOBACCO QUIT 15 YRS OR MORE [facility] Encounter Notes: All associated encounter notes This section contains the clinical notes associated to the Encounter. Date/Time Encounter Note(s) Provider Source Jul 04, 2024 01:35 PM ADMINISTRATIVE NOTE: LOCAL TITLE: ADMINISTRATIVE NOTE STANDARD TITLE: ADMINISTRATIVE NOTE DATE OF NOTE: JUL 04, 2024@13:35 ENTRY DATE: JUL 04, 2024@13:35:26 AUTHOR: GAVINO CORONEL EXP COSIGNER: URGENCY: STATUS: COMPLETED AMSA SPOKE TO ON THE TELEPHONE AND INFORMED HIM OF UPCOMING APPT AND THAT LABWORK IS NEEDED. /moreno/ GAVINO CORONEL [facility] Signed: 07/04/2024 13:43 GAVINO CORONEL [facility]
--- OUTSIDE RECORDS SUMMARY | 2024-09-30 11:50 | XMS_ITS ---
Author Name [place] Address [address] [place] [address] Care Team Providers Care Sex Worker Or Escort Name Role Phone SHREYA HELTON Primary Care Provider Unavailabl e Insurance Providers: [...] Rodrigues's Name Patient's Relationship to Policy Rodrigues [facility] MEDICARE SUPPLEMEN RODERICK MEDEX BRONZ E Jul 18, 2019 [id number] GARCIA,PHI LIP PATIENT [facility] MEDICARE SUPPLEMEN RODERICK MEDEX CORE Jul 18, 2016 [id number] [phone] GARCIA,PHI LIP PATIENT MEDICARE (WNR) MEDICARE (M) PART A Apr 17, 2016 PART A [id number] GARCIA,PHI LIP PATIENT MEDICARE (WNR) MEDICARE (M) PART B Apr 17, 2016 PART B [id number] [id number] GARCIA,PHI LIP PATIENT Selected Encounter This section includes the information on record at [place] for the Encounter. Date/Time Encounter Type Encounter Description Reason Pro vider Source Jul 15, 2024 03:23 PM Outpatient Encounter ADMIN PAT ACTIVTIES (MASNONCT) IHE Encounter Template Text not used by [facility] Plan of Treatment: Future Appointments (+ 6 months) and Future Tests (+/- 45 days) The Plan of Treatment section includes future care activities for the patient from all [place] [facility]. This section includes future appointments and future orders which are active, pending or scheduled. Future Appointments This section includes appointments that were scheduled to occur 6 months from the date of the Encounter, up to a maximum of 20 appointments. The data comes from all [place] treatment facilities. Appointment Date/Time Appointment Type Appointme nt Facility Name Dec 30, 2024 10:30 AM AMBULATORY - MEDICINE [facility] Lab Results: +/- 30 days of the encounter This section includes the Chemistry and Hematology Lab Results on record with [place] for the patient. Radiology Reports and Pathology Reports are provided separately, in subsequent sections. Lab Results This section contains the Chemistry/Hematology Results that were resulted 30 days before or 30 daysafter the date of the Encounter. Date/Time Source Result Type Result - Unit Interpretation Reference Range Comment Jul 15, 2024 09:24 AM [facility] LIPID PANEL FASTING Specimen Type: SERUM No comment entered. Ordering Provider: SHREYA HELTNO Report Released Date/Time: Jul 04, 2024 02:01 PM Reporting Lab: [facility] [address] [facility] [address] Performing Lab: [address] [address] CHOLESTEROL 177 mg/dL TRIGLYCERIDE 72 mg/dL 0-150 LDL calculated 118 mg/dL 0-129 CHOL/HDL 3.9 HDL CHOLESTEROL 45 mg/dL 40-60 Jul 15, 2024 09:24 AM [facility] BASIC METABOLIC PANEL (fasting) Specimen Type: SERUM No comment entered. Ordering Provider: SHREYA HELTON Report Released Date/Time: Jul 04, 2024 02:01 PM Reporting Lab: [address] [address] Performing Lab: [address] [address] UREA NITROGEN 23 mg/dL 7-25 GLUCOSE 83 mg/dL 65-100 SODIUM 137 mmol/L 135-145 POTASSIUM 4.3 mmol/L 3.5-5.0 CHLORIDE 102 mmol/L 100-110 CO2 27 meq/L 20-30 CREATININE, Serum 1.22 mg/dL 0.50-1.40 eGFR(CKD-EPI 2020) 63 mL/min >60 Jul 15, 2024 09:24 AM [facility] LIVER FUNCTION Specimen Type: SERUM No comment entered. Ordering Provider: SHREYA HELTON Report Released Date/Time: Jul 04, 2024 02:01 PM Reporting Lab: [address] [address] Performing Lab: [address] [address] PROTEIN,TOTAL 6.7 g/dL 6.0-8.3 ALBUMIN 3.7 g/dL 3.5-5.0 ALKALINE PHOSPHATASE 64 U/L 40-150 AST 20 U/L 5-34 ALT 17 U/L BILIRUBIN, TOTAL 0.6 mg/dL 0.2-1.2 Jul 15, 2024 09:24 AM [facility] CBC Specimen Type: BLOOD No comment entered. Ordering Provider: SHREYA HELTON Report Released Date/Time: Jul 04, 2024 02:01 PM Reporting Lab: [address] [address] Performing Lab: [address] [address] WBC 8.76 10*3/uL 4.50-11.00 RBC 4.44 10*6/uL [...] Source Jul 15, 2024 09:19 AM 138/74 [place] [facility] [place] [facility] Jul 15, 2024 08:50 AM 98.2 62 158/76 16 99 0 170 27 [facility] Social History: Smoking Status (Most current) and Tobacco Use (All prior to encounter date) This section includes the most current, and the historical, smoking and tobacco- related health factors from the [place] facility where the Encounter took place. Current Smoking Status This section includes the most current smoking, or tobacco-related health factor, from the [place] facility where the Encounter took place. Date/Time Current Smoking Status Comment Facil ity Jul 15, 2024 09:00 AM [place] [facility] Tobacco Use History This section includes a history of the smoking, or tobacco-related health factors, that were collected on or before the date of the Encounter. The data comes from the [place] facility where the Encounter took place. Date/Time Smoking Status/Tobacco Use Comment F acility Jul 15, 2024 09:00 AM [place] 15 YRS [place] MORE [place] [facility] [facility] Jun 22, 2023 04:23 PM [place]-TOBACCO FORMER USER [place] [facility] [place] [facility] Jun 22, 2023 04:23 PM [place]-TO[place]ACCO QUIT 15 YRS OR MORE [facility] Encounter Notes: All associated encounter notes This section contains the clinical notes associated to the Encounter. Date/Time Encounter Note(s) Provider Source Jul 15, 2024 03:23 PM ADMINISTRATIVE NOTE: LOCAL TITLE: CCC: SCHEDULING ADMINISTRATION STANDARD TITLE: ADMINISTRATIVE NOTE DATE OF NOTE: JUL 15, 2024@15:23:29 ENTRY DATE: JUL 15, 2024@15:23:30 AUTHOR: JEYSON TUBBS COSIGNER: URGENCY: STATUS: COMPLETED CCC: SCHEDULING ADMINISTRATION Has ADDENDA Patient Demographics Patient Name: JOSE ROBERTO GARCIA Patient Primary Phone: [phone] Patient Primary Address: [address] [place] [address] [place] [address] Patient : 1950 Patient Age: 74 Caller/Recipient Relation to Patient: Self Administrative Administrative Note Comments: is calling to check on the status of the Cough Medicine request. Please see note from earlier today, forgot to mention it to PCP when he saw them this morning. is leaving on for 3 days and would like to get it before then to take with him. Frederick would like a call back SALINA to discuss @ [phone] IMPORTANT: This note was created by [facility] Clinical Contact Center staff. Please do not alert the staff member by adding them as a signer for future communications. Alerts are not monitored by this user. /moreno/ JEYSON CALDERA 1 [facility] AMSA Signed: 07/15/2024 15:23 Receipt Acknowledged By: 07/16/2024 10:08 /moreno/ SUMANTH URBAN LPN License Practical Nurse 07/15/2024 15:32 /moreno/ LUCILA GUIDRY, RN REGISTERED NURSE 07/15/2024 ADDENDUM STATUS: COMPLETED Spoke with advised of RX ordered by Dr. Helton. he would like to merchandise pickup/receiving associate at [place] pharmacy window. Called pharmacy directly, they advised that they will hold for window merchandise pickup/receiving associate in [place] /tony GUIDRY, RN REGISTERED NURSE Signed: 07/15/2024 15:33 JEYSON TUBBS [place] [facility]
--- OUTSIDE RECORDS SUMMARY | 2024-09-30 11:50 | XMS_ITS ---
Author Name Department [place] Organization [facility] Affairs ([place]) Address [address] [place] [address] Care Team Providers Care Paraplanner Name Role Phone SHREYA PARR Primary Care Provider [facility] Insurance Providers: All historical [...] Rodrigues's Name Patient's Relationship to Policy Rodrigues [facility] MEDICARE SUPPLEMEN RODERICK MEDEX BRONZ E Jul 18, 2019 [id number] [phone] GARCIA,PHI LIP PATIENT [facility] MEDICARE SUPPLEMEN RODERICK MEDEX CORE Jul 18, 2016 [id number] GARCIA,PHI LIP PATIENT MEDICARE (WNR) MEDICARE (M) PART A Apr 17, 2016 PART A [id number] GARCIA,PHI LIP PATIENT MEDICARE (WNR) MEDICARE (M) PART B Apr 17, 2016 PART B [id number] GARCIA,PHI LIP PATIENT Selected Encounter This section includes the information on record at [place] for the Encounter. Date/Time Encounter Type Encounter Description Reason Provider Source Jun 10, 2024 09:00 AM OFFICE O/P EST LOW 20 MIN PODIATRY ICD-10-CM M19.071 Primary osteoarthritis , right ankle and foot [facility] Encounter Template Text not used by [place] Assessments - Encounter Diagnoses This section includes the primary and secondary diagnoses documented for the Encounter. Date/Time Primary/Secondary Diagnosis Diagnosis Name Provider Source Jun 24, 2024 02:02 PM PRIMARY Primary osteoarthritis, right ankle and foot [facility] Jun 24, 2024 02:02 PM SECONDARY Hallux rigidus, unspecified foot [facility] Plan of Treatment: Future Appointments (+ 6 months) and Future Tests (+/- 45 days) The Plan of Treatment section includes future care activities for the patient from all [place] [facility]. This section includes future appointments and future orders which are active, pending or scheduled. Future Appointments This section includes appointments that were scheduled to occur 6 months from the date of the Encounter, up to a maximum of 20 appointments. The data comes from all [place] treatment facilities. Appointment Date/Time Appointment Type Appointme nt Facility Name Jul 15, 2024 09:00 AM AMBULATORY - MEDICINE [facility] Jul 15, 2024 10:00 AM AMBULATORY - MEDICINE [facility] Social History: Smoking Status (Most current) and Tobacco Use (All prior to encounter date) This section includes the most current, and the historical, smoking and tobacco- related health factors from the [place] facility where the Encounter took place. Current Smoking Status This section includes the most current smoking, or tobacco-related health factor, from the [place] facility where the Encounter took place. Date/Time Current Smoking Status Comment Facil ity Jun 22, 2023 04:23 PM [place]-TOBACCO QUIT 15 YRS OR MORE [facility] Tobacco Use History This section includes a history of the smoking, or tobacco-related health factors, that were collected on or before the date of the Encounter. The data comes from the [place] facility where the Encounter took place. Date/Time Smoking Status/Tobacco Use Comment F acility Jun 22, 2023 04:23 PM [place]-TOBACCO QUIT 15 YRS OR MORE [facility] Encounter Notes: All associated encounter notes This section contains the clinical notes associated to the Encounter. Date/Time Encounter Note(s) Provider Source Jun 16, 2024 11:33 AM LETTERS: LOCAL TITLE: PATIENT LETTER (B) STANDARD TITLE: LETTERS DATE OF NOTE: JUN 16, 2024@11:33 ENTRY DATE: JUN 16, 2024@11:33:14 AUTHOR: AIDE OWEN EXP COSIGNER: URGENCY: STATUS: COMPLETED [facility] JOSE ROBERTO GARCIA [address], [place], [address] JUN 16, 2024 Dear JOSE ROBERTO GARCIA, Your shoes have arrived at the [facility] located at [address] [place] [address]. Please call [phone] ext. [phone] for Aide or ext. [phone] for Miya to make a shoe fitting appointment. Clinic Hours are 8:30am-3:30pm. Walk-ins may not be accommodated. We hope to see you soon. Podiatry Staff [address] [address] AIDE OWEN [place] [facility] Jun 10, 2024 09:20 AM PODIATRY NOTE: LOCAL TITLE: PODIATRY NOTE STANDARD TITLE: PODIATRY NOTE DATE OF NOTE: JUN 10, 2024@09:20 ENTRY DATE: JUN 10, 2024@09:20:21 AUTHOR: [facility]GRE EXP COSIGNER: URGENCY: STATUS: COMPLETED Podiatry [facility] Follow up Provider: Adams Alegre Date: JUN 10, 2024 [address], [place] [address] [birth year] MALE [phone] PATIENT PHONE - Primary Care: SHREYA PARR Follow up Visit Concern: Patient is a 74-year-old male with systemic osteoarthritis involving the hands lower back and feet as well as 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 Patient states that symptoms began in his 40s and have progressed. He was seen approximately 6 months ago on referral for management and was prescribed extra- depth extrawide footwear which he has been wearing and helps quite a bit with pain management. He occasionally takes naproxen for pain and episodically takes pain medication medication he has saved from prior surgeries but only if I need it . Patient is wanting to have a second pair of sneakers for working in the yard as present pair of shoes issued are more of dressed type. Hx:[employer] FROM Feb TO Nov Service connections:Service Connected Disabilities with % Eligibility: [place] LESS THAN 50% VERIFIED Total S/C %: 10 IMPAIRED HEARING 0% S/C TINNITUS 10% S/C Medical problems active: Active Problem Bilateral hearing loss H91.93 07/16/2023 NUBIA RAY JAWED Bilateral tinnitus H93.13 07/16/2023 [place] RAYED JAWED Osteoarthritis M19.90 07/16/2023 NUBIA RAY JAWED Disorder of colon 569.9 11/25/2014 [place] Diarrhea 787.91 07/17/2014 [place] Cervical radiculopathy 353.2 12/23/2013 [place] Low back pain 724.2 12/23/2013 [place] Arthritis 716.90 12/23/2013 [place] History of male erectile disorder V 12/23/2013 [place] Active mediciation: Active Outpatient Medications (including Supplies): No Medications Found Allergies: Data on this list may not be complete. Please check JLV. FACILITY ALLERGY/ADR -------- No Remote Allergy/ADR Data available for this patient [place] [facility] [place] [facility] ADHESIVE TAPE PE: Well-appearing, slightly anterior forward gait of torso, feet are abducted gait is mildly propulsive. Neatly dressed pleasant cooperative otherwise well- nourished well-developed. Palpable pulses warm pink skin no edema bilaterally Bilateral hallux valgus with palpable enlargement of both joints without x-rays would estimate to be hallux limitus stage II range of motion is restricted to about 25 degrees bilaterally. Palpation of the right second metatarsophalangeal joint reveals enlargement and some crepitus. This does elicit some pain. 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 Left side lesser joints are stable No interdigital lesions or calluses Bunion without irritation today Integument unremarkable otherwise Structural foot type is pes planus, mild, and mainly due to tibial varum. Impression: -Osteoarthritis ankle foot primary bilateral -Hallux rigidus/hallux valgus bilateral -Lesser metatarsal primary osteoarthritis second #2 right Plan: -Will order extra-depth extrawide sneaker for patient with standard insert -Follow-up as needed or 1 year. Return sooner if any fever chills nausea, vomiting increased redness, swelling, drianage, pain, or flu like symptoms, or go to nearest emergency room / urgent care for evaluation. -all sharpes cleared, processed and or disposed of according to SOP/MCP. -As part of the service the pertinent primary care, specialty care and urgent care notes have been reviewed as well as the patient's medication list, problem list, and current imaging as well as past imaging, laboratory data and other pertinent contributory consults. -All new and discontinued medications have been discussed in detail with the patient and or caregiver, including indications for additions and deletions, as well as possible side effects, interactions as foreseen, and risk of not taking as prescribed If applicable, the patient was advised clearly on application of wound care agents how to apply and when to apply. The patient was able to recitethis information back to the prescriber with good understanding and agreed to the plan of care as indicated above. -Plan of care discuss with the patient and or caregiver, including medical decision making which includes discussion of abnormal lab results, imaging and other diagnostic modalities as well as results of the physical exam and qa consultant opinions and recommendations as sought. Alternatives to surgery or outlined care above as appropriate have also been discussed. -The patient/ caregiver has displayed good understanding of above and with no further questions at this time. Patient is aware of next appointment and agrees to follow-up interval. Patient agrees to seek sooner follow up if any irregular events occur in between such as cardinal signs of infection, increased pain or deformity. -The on this visit was given information [employer] service and encouraged to enroll if not already having done so. /moreno/ [facility] DPM PODIATRY ATTENDING Signed: 06/10/2024 09:27 [facility]
--- OUTSIDE RECORDS SUMMARY | 2024-09-30 11:50 | XMS_ITS ---
Author Name [facility] [place] Organization [place] Address [address] [place] [address] Care Team Providers Care Safe Deposit Clerk Name Role Phone SHREYA PARR Primary [facility] Insurance Providers: All historical and current [...] RODERICK MEDEX BRONZ E Jul 18, 2019 [id number] GARCIAJOSE M LIP PATIENT [facility] MEDICARE SUPPLEMEN RODERICK MEDEX CORE Jul 18, 2016 [id number] [phone] GARCIA,PHI LIP PATIENT MEDICARE (WNR) MEDICARE (M) PART A Apr 17, 2016 PART A [id number] GARCIAJOSE M LIP PATIENT MEDICARE (WNR) MEDICARE (M) PART B Apr 17, 2016 PART B [id number] [id number] GARCIAJOSE M LIP PATIENT Selected Encounter This section includes the information on record at [place] for the Encounter. Date/Time Encounter Type Encounter Description Reason Provider Source Jul 15, 2024 10:00 AM DIABETIC CUSTOM MOLDED SHOE PODIATRY ICD-10-CM M19.071 Primary osteoarthritis , right ankle and foot KD TRUJILLO IHE Encounter Template Text not used by [place] Assessments - Encounter Diagnoses This section includes the primary and secondary diagnoses documented for the Encounter. Date/Time Primary/Secondary Diagnosis Diagnosis Name Provider Source Jul 27, 2024 11:15 AM PRIMARY Primary osteoarthritis, right ankle and foot KD TRUJILLO [facility] Plan of Treatment: Future Appointments (+ 6 months) and Future Tests (+/- 45 days) The Plan of Treatment section includes future care activities for the patient from all [place] treatmentfacilities. This section includes future appointments and future orders which are active, pending or scheduled. Future Appointments This section includes appointments that were scheduled to occur 6 months from the date of the Encounter, up to a maximum of 20 appointments. The data comes from all [place] treatment facilities. Appointment Date/Time Appointment Type Appointme nt Facility Name Dec 30, 2024 10:30 AM AMBULATORY - MEDICINE [facility] Lab Results: +/- 30 days of the encounter This section includes the Chemistry and Hematology Lab Results on record with [place] for the patient. Radiology Reports and Pathology Reports are provided separately, in subsequent sections. Lab Results This section contains the Chemistry/Hematology Results that were resulted 30 days before or 30 daysafter the date of the Encounter. Date/Time Source Result Type Result - Unit Interpretation Reference Range Comment Jul 15, 2024 09:24 AM [facility] LIPID PANEL FASTING Specimen Type: SERUM No comment entered. Ordering Provider: SHREYA PARR Report Released Date/Time: Jul 04, 2024 02:01 PM Reporting Lab: [facility] [address] [facility] [address] Performing Lab: [facility] [address] [facility] [address] CHOLESTEROL 177 mg/dL TRIGLYCERIDE 72 mg/dL 0-150 LDL calculated 118 mg/dL 0-129 CHOL/HDL 3.9 HDL CHOLESTEROL 45 mg/dL 40-60 Jul 15, 2024 09:24 AM [facility] LIVER FUNCTION Specimen Type: SERUM No comment entered. Ordering Provider: SHREYA PARR Report Released Date/Time: Jul 04, 2024 02:01 PM Reporting Lab: [facility] [address] [facility] [address] Performing Lab: [address] [address] PROTEIN,TOTAL 6.7 g/dL 6.0-8.3 ALBUMIN 3.7 g/dL 3.5-5.0 ALKALINE PHOSPHATASE 64 U/L 40-150 AST 20 U/L 5-34 ALT 17 U/L BILIRUBIN, TOTAL 0.6 mg/dL 0.2-1.2 Jul 15, 2024 09:24 AM [facility] BASIC METABOLIC PANEL (fasting) Specimen Type: SERUM No comment entered. Ordering Provider: SHREYA PARR Report Released Date/Time: Jul 04, 2024 02:01 PM Reporting Lab: [address] [address] Performing Lab: [address] [address] UREA NITROGEN 23 mg/dL 7-25 GLUCOSE 83 mg/dL 65-100 SODIUM 137 mmol/L 135-145 POTASSIUM 4.3 mmol/L 3.5-5.0 CHLORIDE 102 mmol/L 100-110 CO2 27 meq/L 20-30 CREATININE, Serum 1.22 mg/dL 0.50-1.40 eGFR(CKD-EPI 2020) 63 mL/min >60 Jul 15, 2024 09:24 AM [facility] CBC Specimen Type: BLOOD No comment entered. Ordering Provider: SHREYA PARR Report Released Date/Time: Jul 04, 2024 02:01 PM Reporting Lab: [facility] [address] [facility] [address] Performing Lab: [address] [address] WBC 8.76 10*3/uL 4.50-11.00 RBC 4.44 10*6/uL [...] Source Jul 15, 2024 09:19 AM 138/74 [place] [facility] Jul 15, 2024 08:50 AM 98.2 62 158/76 16 99 0 170 27 [facility] Social History: Smoking Status (Most current) and Tobacco Use (All prior to encounter date) This section includes the most current, and the historical, smoking and tobacco- related health factors from the [place] facility where the Encounter took place. Current Smoking Status This section includes the most current smoking, or tobacco-related health factor, from the [place] facility where the Encounter took place. Date/Time Current Smoking Status Comment Marina ity Jul 15, 2024 09:00 AM VA-TOBACCO FORMER USER [facility] Tobacco Use History This section includes a history of the smoking, or tobacco-related health factors, that were collected on or before the date of the Encounter. The data comes from the [place] facility where the Encounter took place. Date/Time Smoking Status/Tobacco Use Comment F acility Jul 15, 2024 09:00 AM [place]-TOBACCO QUIT 15 YRS OR MORE [facility] Jun 22, 2023 04:23 PM [facility] Jun 22, 2023 04:23 PM [place]-TOBACCO QUIT 15 YRS OR MORE [facility] Encounter Notes: All associated encounter notes This section contains the clinical notes associated to the Encounter. Date/Time Encounter Note(s) Provider Source Jul 15, 2024 09:51 AM NURSING OUTPATIENT NOTE: LOCAL TITLE: NURSING/SPECIALTY CLINIC NOTE STANDARD TITLE: NURSING OUTPATIENT NOTE DATE OF NOTE: JUL 15, 2024@09:51 ENTRY DATE: JUL 15, 2024@09:51:26 AUTHOR: KD TRUJILLO EXP COSIGNER: URGENCY: STATUS: COMPLETED F: Shoe Fitting D/A: Patient received and was fitted for shoes. Instructed on the proper breaking in of the shoes. Patient informed to call with any problems or concerns. DX: Primary Osteoarthritis, right Ankle and Foot /es/ KD TRUJILLO LPN LICENSED PRACTICAL NURSE Signed: 07/15/2024 09:52 KD TRUJILLO [facility]
--- OUTSIDE RECORDS SUMMARY | 2024-09-30 11:50 | XMS_ITS ---
Author Name [facility] [place] Organization [place] Address [address] [place] [address] Care Team Providers Care Dyeing Machine Tender Name Role Phone SHREYA PARR Primary [facility] Provider [facility] jud[facility] Insurance Providers: All historical and [...] Rodrigues's Name Patient's Relationship to Policy Rodrigues [facility] MEDICARE SUPPLEMEN RODERICK MEDEX BRONZ E Jul 18, 2019 [id number] [phone] GARCIA,PHI LIP PATIENT [facility] MEDICARE SUPPLEMEN RODERICK MEDEX CORE Jul 18, 2016 [id number] [phone] GARCIA,PHI LIP PATIENT MEDICARE (WNR) MEDICARE (M) PART A Apr 17, 2016 PART A [id number] [id number] AGRCIA,PHI LIP PATIENT MEDICARE (WNR) MEDICARE (M) PART B Apr 17, 2016 PART B [id number] [id number] GARCIA,PHI LIP PATIENT Selected Encounter This section includes the information on record at [place] for the Encounter. Date/Time Encounter Type Encounter Description Reason Provider Source Nov 14, 2023 10:31 AM Outpatient Encounter PROSTHETICS/ORTHOTI MAGGIE DHILLON Encounter Template Text not used by [place] Plan of Treatment: Future Appointments (+ 6 months) and Future Tests (+/- 45 days) The Plan of Treatment section includes future care activities for the patient from all [place] [facility]. This section includes future appointments and future orders which are active, pending or scheduled. Future Appointments This section includes appointments that were scheduled to occur 6 months from the date of the Encounter, up to a maximum of 20 appointments. The data comes from all [place] treatment facilities. Appointment Date/Time Appointment Type Appointme nt Facility Name Nov 26, 2023 09:00 AM AMBULATORY - MEDICINE [facility] Social History: Smoking Status (Most current) and Tobacco Use (All prior to encounter date) This section includes the most current, and the historical, smoking and tobacco- related health factors from the [place] facility where the Encounter took place. Current Smoking Status This section includes the most current smoking, or tobacco-related health factor, from the [place] facility where the Encounter took place. Date/Time Current Smoking Status Comment Facil ity Jun 22, 2023 04:23 PM [place]-TOBACCO QUIT 15 YRS OR MORE [facility] Tobacco Use History This section includes a history of the smoking, or tobacco-related health factors, that were collected on or before the date of the Encounter. The data comes from the [place] facility where the Encounter took place. Date/Time Smoking Status/Tobacco Use Comment F acility Jun 22, 2023 04:23 PM [place]-TOBACCO QUIT 15 YRS OR MORE [facility]
--- OUTSIDE RECORDS SUMMARY | 2024-09-30 11:51 | XMS_ITS ---
Author Name Department [place] Organization [facility] Address [address] [place] [address] Care Team Providers Care Reimbursement Representative Name Role Phone SHREYA PARR Primary Care [facility] Insurance Providers: All historical and [...] Rodrigues's Name Patient's Relationship to Policy Rodrigues [facility] MEDICARE SUPPLEMEN RODERICK MEDEX BRONZ E Jul 18, 2019 [id number] GARCIA,PHI LIP PATIENT [facility] MEDICARE SUPPLEMEN RODERICK MEDEX CORE Jul 18, 2016 [id number] GARCIA,PHI LIP PATIENT MEDICARE (WNR) MEDICARE (M) PART A Apr 17, 2016 PART A [id number] GARCIA,PHI LIP PATIENT MEDICARE (WNR) MEDICARE (M) PART B Apr 17, 2016 PART B [id number] [id number] GARCIA,PHI LIP PATIENT Selected Encounter This section includes the information on record at [place] for the Encounter. Date/Time Encounter Type Encounter Description Reason Provider Source Nov 07, 2023 02:00 PM OFFICE O/P NEW LOW 30 MIN PODIATRY ICD-10-CM M20.10 Hallux valgus (acquired), unspecified foot MAGGIE CELESTE Judith Encounter Template Text not used by [place] Assessments - Encounter Diagnoses This section includes the primary and secondary diagnoses documented for the Encounter. Date/Time Primary/Secondary Diagnosis Diagnosis Name Provider Source Nov 29, 2023 07:25 AM PRIMARY Hallux valgus (acquired), unspecified foot BOOKER,MAGGIE [facility] Nov 29, 2023 07:25 AM SECONDARY Nail dystrophy [facility]OOKER,MAGGIE [facility] Nov 29, 2023 07:25 AM SECONDARY Other hammer toe(s) (acquired), unspecified foot BOOKER,MAGGIE [facility] Plan of Treatment: Future Appointments (+ 6 months) and Future Tests (+/- 45 days) The Plan of Treatment section includes future care activities for the patient from all [place] [facility]. This section includes future appointments and future orders which are active, pending or scheduled. Future Appointments This section includes appointments that were scheduled to occur 6 months from the date of the Encounter, up to a maximum of 20 appointments. The data comes from all [place] treatment facilities. Appointment Date/Time Appointment Type Appointme nt Facility Name Nov 26, 2023 09:00 AM AMBULATORY - MEDICINE [facility] Social History: Smoking Status (Most current) and Tobacco Use (All prior to encounter date) This section includes the most current, and the historical, smoking and tobacco- related health factors from the [place] facility where the Encounter took place. Current Smoking Status This section includes the most current smoking, or tobacco-related health factor, from the [place] facility where the Encounter took place. Date/Time Current Smoking Status Comment Facil ity Jun 22, 2023 04:23 PM [place]-TOBACCO QUIT 15 YRS OR MORE [facility] Tobacco Use History This section includes a history of the smoking, or tobacco-related health factors, that were collected on or before the date of the Encounter. The data comes from the [place] facility where the Encounter took place. Date/Time Smoking Status/Tobacco Use Comment F acility Jun 22, 2023 04:23 PM [place]-TOBACCO QUIT 15 YRS OR MORE [facility] Encounter Notes: All associated encounter notes This section contains the clinical notes associated to the Encounter. Date/Time Encounter Note(s) Provider Source Nov 14, 2023 03:14 PM LETTERS: LOCAL TITLE: PATIENT LETTER (B) STANDARD TITLE: LETTERS DATE OF NOTE: NOV 14, 2023@15:14 ENTRY DATE: NOV 14, 2023@15:14:08 AUTHOR: DANIEL OWEN EXP COSIGNER: URGENCY: STATUS: COMPLETED [facility] JOSE ROBERTO GARCIA [address] [place] [address] [address] [place], [place], [address] NOV 14, 2023 Dear JOSE ROBERTO GARCIA, Your shoes have arrived at the [facility] located at [address] [place] [address]. Please call [phone] ext. [phone] for Daniel or ext. [phone] for Miya to make a shoe fitting appointment. Clinic Hours are 8:30am-3:30pm. Walk-ins may not be accommodated. We hope to see you soon. Podiatry Staff [address] [address] DANIEL OWEN [place] [facility] Nov 07, 2023 02:46 PM PODIATRY CONSULT: LOCAL TITLE: CONSULT REPORT/PODIATRY STANDARD TITLE: PODIATRY CONSULT DATE OF NOTE: NOV 07, 2023@14:46 ENTRY DATE: NOV 07, 2023@14:46:14 AUTHOR: MAGGIE CELESTE EXP COSIGNER: URGENCY: STATUS: COMPLETED S) 73 y/o male referred for foot pain and possible shoes. He has arthritis and malpositioning of his great toes which limit what he can comfortably wear. Also has arthritis in hands so he has been using velcro closure shoes Active problems - Computerized Problem List is the source for the followin. Disorder of colon 2. Diarrhea 3. Cervical radiculopathy 4. Low back pain 5. Arthritis 6. History of male erectile disorder Allergies: adhesive tape Active Outpatient Medications (including Supplies): No Medications Found He reports takes Napoxen 500 mg bid for arthritis O) Integumentary: nails elongated, skin intact, no lesions or rash PV: DP 1/4, PT 1/4 B/L, no edema, slight hair growth cft 2 sec all digits Sensory: no numbness, tingling. 5.07 monofilament wire intact 10/10 MSK: ROM mildly restricted at 1st mpj, otherwise unrestricted. Hallux laterally deviated , and lesser toes have contracture. slightly inverted heel in stance. 1st MPJ hypertrophied, arthritic, no redness or swelling, no acute pain with ROM Wearing velcro Asic sneaker, little support A) Hallux Valgus B/L hammertoes B/L arthritis mild nail dystrophy P) foot exam discussed demario, migel , conservative , surgical.Pt not intersted in surgery at this time debrided nails B/L measure for and placed prosthetics request for shoes to accomodate the bunions rtc 6 mos /es/ MAGGIE CELESTE DPM RAMP ATTENDANT Signed: 11/07/2023 15:30 MAGGIE CELESTE [facility]
--- OUTSIDE RECORDS SUMMARY | 2024-09-30 11:51 | XMS_ITS ---
Author Name [facility] [place] Organization [facility] Address [address] [place] [address] Care Team Providers Care Molding Engineer Name Role Phone SHREYA PARR Primary [facility] Provider [facility] Insurance Providers: All historical and [...] Rodrigues's Name Patient's Relationship to Policy Rodrigues [facility] MEDICARE SUPPLEMEN RODERICK MEDEX BRONZ E Jul 18, 2019 [id number] JOSE M GARCIA LIP PATIENT [facility] MEDICARE SUPPLEMEN RODERICK MEDEX CORE Jul 18, 2016 [id number] [phone] GARCIA,PHI LIP PATIENT MEDICARE (WNR) MEDICARE (M) PART A Apr 17, 2016 PART A [id number] [id number] GARCIAJOSE M LIP PATIENT MEDICARE (WNR) MEDICARE (M) PART B Apr 17, 2016 PART B [id number] VN02 GARCIAJOSE M LIP PATIENT Selected Encounter This section includes the information on record at [place] for the Encounter. Date/Time Encounter Type Encounter Description Reason Provider Source Nov 26, 2023 09:00 AM ORTHOPEDIC MENS SHOES DPTH I PODIATRY ICD-10-CM M20.10 Hallux valgus (acquired), unspecified foot KD TRUJILLO Judith Encounter Template Text not used by [place] Assessments - Encounter Diagnoses This section includes the primary and secondary diagnoses documented for the Encounter. Date/Time Primary/Secondary Diagnosis Diagnosis Name Provider Source Dec 25, 2023 12:59 PM PRIMARY Hallux valgus (acquired), unspecified foot KD TRUJILLO [facility] Social History: Smoking Status (Most current) and Tobacco Use (All prior to encounter date) This section includes the most current, and the historical, smoking and tobacco- related health factors from the [place] facility where the Encounter took place. Current Smoking Status This section includes the most current smoking, or tobacco-related health factor, from the [place] facility where the Encounter took place. Date/Time Current Smoking Status Comment Facil ity Jun 22, 2023 04:23 PM VA-TOBACCO FORMER USER [facility] Tobacco Use History This section includes a history of the smoking, or tobacco-related health factors, that were collected on or before the date of the Encounter. The data comes from the [place] facility where the Encounter took place. Date/Time Smoking Status/Tobacco Use Comment F acility Jun 22, 2023 04:23 PM [place]-TOBACCO QUIT 15 YRS OR MORE [facility] Encounter Notes: All associated encounter notes This section contains the clinical notes associated to the Encounter. Date/Time Encounter Note(s) Provider Source Nov 26, 2023 08:48 AM NURSING OUTPATIENT NOTE: LOCAL TITLE: NURSING/SPECIALTY CLINIC NOTE STANDARD TITLE: NURSING OUTPATIENT NOTE DATE OF NOTE: NOV 26, 2023@08:48 ENTRY DATE: NOV 26, 2023@08:48:29 AUTHOR: KD TRUJILLO EXP COSIGNER: URGENCY: STATUS: COMPLETED NURSING/SPECIALTY CLINIC NOTE Has ADDENDA F: Shoe Fitting D/A: Patient received and was fitted for shoes. Instructed on the proper breaking in of the shoes. Patient informed to call with any problems or concerns. DX: Hallux Valgus (Acquired), unspecified Foot( /moreno/ KD TRUJILLO MACHINE ADJUSTER LICENSED PRACTICAL NURSE Signed: 11/26/2023 08:50 12/24/2023 ADDENDUM STATUS: COMPLETED Shoes for severe foot deformity from arthritis. /moreno/ KD TRUJILLO LPN LICENSED PRACTICAL NURSE Signed: 12/24/2023 07:47 12/25/2023 ADDENDUM STATUS: COMPLETED Hallux Valgus B/L hammertoes B/L arthritis mild nail dystrophy /moreno/ KD TRUJILLO LPN LICENSED PRACTICAL NURSE Signed: 12/25/2023 07:27 KD TRUJILLO [facility]
--- OUTSIDE RECORDS SUMMARY | 2024-09-30 11:51 | XMS_ITS | Encounter Summary ---
Author Name [facility] [place] Organization [place] Address [address] [place] [address] Care Team Providers Care Flaker Tender Name Role Phone SHREYA PARR Primary Care Provider [facility] judith Insurance Providers: All historical [...] Rodrigues's Name Patient's Relationship to Policy Rodrigues [facility] MEDICARE SUPPLEMEN RODERICK MEDEX BRONZ E Jul 18, 2019 [id number] JOSE M GARCIA LIP PATIENT [facility] MEDICARE SUPPLEMEN RODERICK MEDEX CORE Jul 18, 2016 [id number] [phone] GARCIA,PHI LIP PATIENT MEDICARE (WNR) MEDICARE (M) PART B Apr 17, 2016 PART B [id number] JOSE M GARCIA LIP PATIENT MEDICARE (WNR) MEDICARE (M) PART A Apr 17, 2016 PART A [id number] JOSE M GARCIA LIP PATIENT Selected Encounter This section includes the information on record at [place] for the Encounter. Date/Time Encounter Type Encounter Description Reason Pro vider Source Oct 25, 2023 09:19 AM Outpatient Encounter PRIMARY CARE/MEDICINE IHE Encounter Template Text not used by [place] Plan of Treatment: Future Appointments (+ 6 months) and Future Tests (+/- 45 days) The Plan of Treatment section includes future care activities for the patient [facility] [place] [facility]. This section includes future appointments and future orders which are active, pending or scheduled. Future Appointments This section includes appointments that were scheduled to occur 6 months from the date of the Encounter, up to a maximum of 20 appointments. The data comes from all [place] treatment facilities. Appointment Date/Time Appointment Type Appointme nt Facility Name Nov 07, 2023 02:00 PM AMBULATORY - MEDICINE [facility] Nov 26, 2023 09:00 AM AMBULATORY MEDICINE [facility] Social History: Smoking Status (Most current) and [...] 22, 2023 04:23 PM VA-TOBACCO FORMER USER [facility] Tobacco Use History This section includes a history of the smoking, or tobacco-related health factors, that were collected on or before the date of the Encounter. The data comes from the [place] facility where the Encounter took place. Date/Time Smoking Status/Tobacco Use Comment F acility Jun 22, 2023 04:23 PM [place]-TOBACCO QUIT 15 YRS OR MORE [facility] Encounter Notes: All associated encounter notes This section contains the clinical notes associated to the Encounter. Date/Time Encounter Note(s) Provider Source Oct 25, 2023 09:19 AM PREVENTIVE MEDICIN E NURSING NOTE: LOCAL TITLE: CLINICAL REMINDERS/NURSING STANDARD TITLE: PREVENTIVE MEDICINE NURSING NOTE DATE OF NOTE: OCT 25, 2023@09:19 ENTRY DATE: OCT 25, 2023@09:19:19 AUTHOR: EMMANUELLE MARCUM EXP COSIGNER: URGENCY: STATUS: COMPLETED Influenza Immunization: The patient declines to receive the recommended dose of seasonal influenza vaccine. Immunization: INFLUENZA, UNSPECIFIED FORMULATION Refusal Reason: PATIENT DECISION Patient refuses all immunization(s) in the FLU group Date Documented: 10/25/23 09:19 /moreno/ EMMANUELLE MARCUM LPN Signed: 10/25/2023 09:20 EMMANUELLE MARCUM [facility]
== END 2024-09-30 11:16 | disposition home or self-care (01) ==
PROVIDERS: PCP Internal Medicine; Visit Provider Internal Medicine
DX: D22.9 Melanocytic nevi, unspecified (principal); L57.0 Actinic keratosis

== ENCOUNTER → 2024-09-30 10:17 | Outpatient (BNVA) | payer MEDICARE, SELFPAY | PROVIDERS: PCP Internal Medicine; Visit Provider Internal Medicine | DX: D22.9 Melanocytic nevi, unspecified (principal); L57.0 Actinic keratosis | CPT/HCPCS: 99212 ==

== ENCOUNTER 2025-08-14 07:39 | Outpatient (REF) | payer MEDICARE, SELFPAY ==
[2025-08-14 07:51] LABS: MANUAL DIFF FLAG NO
[2025-08-14 08:36] LABS: Hematocrit 42.9 % (42.0-52.0); Hemoglobin 14.6 g/dl (14.0-18.0); Imm Gran Abs Auto 0.01 X10*3/uL (0.00-0.03); Imm Gran Pct Auto 0.2 % (0.0-0.4); Lymphocytes Absolute Auto 2.0 X10*3/uL (1.2-4.9); Mean Corpuscular HGB Conc 34.0 g/dl (31.0-36.0); Mean Corpuscular Hemoglobin 30.9 pg (27.0-33.0); Mean Corpuscular Volume 90.7 fL (80.0-98.0); NRBC Abs Auto 0.000 X10*3/uL (0.0-0.012); NRBC Pct Auto 0.0 /100WBC (0.0-0.2); Platelet Count 246 X10*3/uL (160-400); Red Blood Count 4.73 X10*6/uL (4.60-5.80); White Blood Count 5.4 X10*3/uL (4.8-10.8)
[2025-08-14 09:04] LABS: Alanine Aminotransferase 17 U/L (0-40); Albumin Level 4.2 g/dL (3.5-5.0); Alkaline Phosphatase 68 U/L (39-117); Anion Gap 11 (12-20); Aspartate Amino Transferase 25 U/L (5-37); Blood Urea Nitrogen 25 mg/dL (9-16); Calcium 9.4 mg/dL (8.4-10.2); Carbon Dioxide 29 mmol/L (22-29); Chloride 106 mmol/L (96-108); Cholesterol 187 mg/dL (<200); Estimated Glomerular Filt Rate 60; HDL Cholesterol 56 mg/dL (>40); Potassium 4.4 mmol/L (3.3-5.1); Sodium 142 mmol/L (135-145); Total Protein 6.9 g/dL (6.5-8.0); Triglycerides 52 mg/dL (<150)
[2025-08-14 09:25] LABS: Free T4 (Free Thyroxine) 1.03 ng/dL (0.71-1.85); Thyroid Stimulating Hormone 1.62 uIU/mL (0.32-4.0)
[2025-08-14 09:36] LABS: Folate 14.7 ng/mL (> or = 4.0); Vitamin B12 404 pg/mL (200-900)
== END 2025-08-14 07:40 | disposition home or self-care (01) ==
LOC: HO.LAB 07:39
PROVIDERS: PCP Internal Medicine; Visit Provider Internal Medicine
DX: Z12.5 Encounter for screening for malignant neoplasm of prostate (principal); Z13.1 Encounter for screening for diabetes mellitus; E78.00 Pure hypercholesterolemia, unspecified
CPT/HCPCS: 36415; 80053; 80061; 82607; 82746; 83036; 84153; 84439; 84443; 85025

== ENCOUNTER 2025-08-20 12:16 | Outpatient (AMB) | payer MEDICARE, SELFPAY ==
[2025-08-20 12:26] VITALS: BP 132/82; PULSE 66; O2SAT 96; BMI 26.3
--- NOTE | 2025-08-20 12:26 | A.OFFVIS_ITS ---
Intake Vital Signs 3 08/20/25 12:26 Height 5 ft 7 in Weight 168 lb BMI 26.3 BP 132/82 Blood Pressure Location Lt brachial Position Sitting Pulse 66 Pulse Source Pulse Oximeter Pulse Oximetry (%) 96 Oxygen Delivery Method Room Air Intake Visit Reasons: PE Allergies No Known Allergies Allergy (Verified 08/20/25 12:27) Medication List - Last Reconciled 08/20/25 by Randall Monae MD ascorbic acid (vitamin C) mg PO cholecalciferol (vitamin D3) 25 mcg PO DAILY multivitamin 1 tab PO DAILY naproxen 500 mg PO BID HPI PE 2 HPI0 Details [place] of Care: [facility] HPI Comments 2 History of Present Illness0 Details History of Present Illness The patient is a 75-year-old male presenting for a physical exam. His past medical history is significant for impaired glucose tolerance, hypercholesterolemia, and thoracic degenerative disc disease. He has a history of osteoarthritis and is followed by the [facility] and rheumatology, for which he takes naproxen. He received an injection in his right index finger in December, which did not provide relief. He is scheduled for a dental extraction of two teeth this coming Sunday. He has a history of hernia repair with mesh. His last Cologuard test was in September 2022. Blood work from July 2025 showed a normal blood count with no anemia, normal electrolytes, creatinine of 1.1, normal blood sugar and liver function, and good cholesterol, prostate, B12, folic acid, and thyroid levels. An older lab result showed a creatinine of 4.2. The patient's medications include naproxen, multivitamins, vitamin D, and vitamin C. He reports no known drug allergies. He had shingles in the early 1970s and his last pneumonia shot was in 2018. Family history is significant for heart attacks and diabetes on his father's side, with male relatives passing away between ages 50 and 65. Health Maintenance The patient's elevated BUN of 25 indicates dehydration. He was counseled to increase his daily water intake to four bottles, avoiding fluids two hours before bedtime to minimize nocturia. His last Cologuard was in 2022; he will be due for repeat screening next year. Vaccinations for shingles and pneumonia were discussed, but the patient declined at this time. He was encouraged to continue regular physical activity, eat a healthy diet, and use caution during strenuous activities. He will follow up as needed. Social History - Substance Use: The patient drinks one to two glasses of wine with supper or has beer with pizza. - He denies any current tobacco use or u se of recreational drugs. - Exercise: He walks his dog almost ever y day but avoids it in the rain. - He also performs yard work such as natalee veling and using a snowblower. - Diet: The patient reports drinking one or two bottles of water per day, which he acknowledges is not enough. Results - Labs (from July 2025): - CBC: Normal blood count, no anemia. - Comprehensive Metabolic Panel: Electro lytes normal. - Renal function stable with creatinine of 1.1 and BUN of 25. - Blood sugar is normal. - Liver function is good. - Hemoglobin A1c: Normal. - Lipid Panel: LDL is 121 mg/dL (goal <1 30 mg/dL). - HDL is 56 mg/dL (protective >50 mg/dL) . - Other: PSA, Vitamin B12, folic acid, a nd thyroid levels are normal. - Screening Tests: - Cologuard (September 2022): Negative. [facility] Medical History (Updated 09/30/24 @ 11:05 by Randall Monae MD) Screening for prostate cancer COVID-19 virus infection Degenerative disc disease, thoracic Surgical History History of colonoscopy History of testicular surgery H/O ventral hernia repair H/O arthroscopic knee surgery H/O thumb surgery Cervical disc disease Family History Father Myocardial infarct Paternal Aunt Myocardial infarct Social History (Updated 08/20/25 @ 12:41 by Randall Monae MD) Housing: House Alcohol intake: current Comment: 1-2 a week glass of wine per day Patient Tobacco Use Status: Former Tobacco user Tobacco use type: Cigarette Years Smoked: quit 1976 e-Cigarette/Vaping Use: Never Used Second Hand Smoke Exposure: No service: No Current occupational status: retired Cognitive needs: No Hearing needs: Yes Vision needs: Yes Questionnaire Medicare Wellness Checkup [age] What gender do you identify with?: male During the past 4 weeks, how much have you been bothered by emotional problems such as feeling anxious, depressed, irritable, sad or downhearted, and blue?: n ot at all During the past 4 weeks, has your physical & emotional health limited your social activities with family, friends, neighbors, or groups?: not at all During the past 4 weeks, how much bodily pain have you generally had?: mild pain During the past 4 weeks, was someone available to help you if you needed & wanted help?: yes, as much as I wanted During the past 4 weeks, what was the hardest physical activity you could do for at least 2 minutes?: heavy Can you get to places out of walking distance without help? (For eg., can you travel alone on buses, taxis or drive your car?): Yes Can you go shopping for groceries or clothes without someone's help?: Yes Can you prepare your own meals?: Yes Can you do your housework without help?: Yes Because of any health problems, do you need the help of another person with your personal care needs such as eating, bathing, dressing or getting around the house?: No Can you handle your own money without help?: Yes During the past 4 weeks, how would you rate your health in general?: good During the past 4 weeks how have things been going for you?: pretty well Are you having difficulties driving your car?: no Do you always fasten your seat belt when you are in a car?: yes, usually During past 4 weeks, have you been bothered by the following: never: Falling or dizzy when standing up, Trouble eating well?, Problems using the telephone? and Tiredness or fatigue?, seldom: Teeth or denture problems? and sometimes: Sexual problems? Have you fallen 2 or more times in the past year?: No Are you afraid of falling?: No Are you a smoker?: no During the past 4 weeks, how many drinks of wine, beer, or other alcoholic beverages did you have?: 2-5 drinks per week Do you exercise for about 20 minutes 3 or more times a week?: no, I usually do not exercise this much Have you been given information to help with the following?: no: Hazards in your house that might hurt you? and no: Keeping track of your medications? How often do you have trouble taking medicines the way you have been told to take them?: I always take medicine as prescribed How confident are you that you can control & manage most of your health problems?: very confident What is your race?: Other PHQ-9 Over the last 2 weeks, how often have you been bothered by any of the following problems? 1. Little interest or pleasure in doing things: not at all 2. Feeling down, depressed, or hopeless: not at all 3. Trouble falling or staying asleep, or sleeping too much: not at all 4. Feeling tired or having little energy: not at all 5. Poor appetite or overeating: not at all 6. Feeling bad about yourself - or that you are a failure or have let yourself or your family down: not at all 7. Trouble concentrating on things, such as reading the newspaper or watching television: not at all 8. Moving or speaking so slowly that other people could have noticed. Or the opposite - being so fidgety or restless that you have been moving around a lot more than usual: not at all 9. Thoughts that you would be better off or of hurting yourself in some way: not at all Total score: 0 Depression Screening Interpretation: Negative Depression Screening Done: Yes Source: Developed by Drs. Dino Luna, Lynne Botello, Christopher Vincent and colleagues, with an educational сергей from [employer]. Review of Systems Narrative Review of Systems - Constitutional: Denies fever. - Neurological: Denies passing out or feeling dizzy. - HEENT: Reports using bilateral hearing aids. - Reports having cataracts. - Denies problems with swallowing. - Cardiovascular: Denies chest pain or discomfort. - Denies dyspnea on exertion, including when climbing stairs. - Respiratory: Denies waking up short of breath. - Gastrointestinal: Denies nausea, vomiting, heartburn, constipation, or diarrhea. - Reports good bowel movements. - Genitourinary: Reports nocturia one to two times per night. Const Denies poor appetite and Denies weakness Eyes Denies no additional complaints ENT Reports Normal hearing present, Denies dizziness, Denies nasal congestion, Denies tinnitus and Denies sore throat Card Denies chest pain, Denies syncope, Denies rapid heart rate and Denies dyspnea Resp Denies cough and Denies dyspnea GI Denies change in stool character, Reports constipation, Denies diarrhea, Denies nausea and Denies vomiting Denies dysuria and Denies urinary frequency Neuro Reports Normal hearing present, Denies confusion, Denies dizziness, Denies syncope and Denies weakness Psych Denies confusion Physical Exam Exam Exam: Physical Exam General: Cooperative, healthy appearing, comfortable, no acute distress and well developed Orientation: Patient oriented x3 Limitations: No limitations Head: Normal to inspection Ears: Hearing aids in use, some ear wax present but not completely obstructing Nose: Normal external nose present Face and sinus: Normal facial exam Eyes: Appearance normal, both eyes and all related structures, some cataracts present but monitored Neck: Normal visual inspection and Yes full ROM Respiratory: Normal respiratory effort and able to speak in complete sentences. Clear to auscultation bilaterally Cardiovascular: Regular rate and rhythm. Normal S1 and S2 GI: Normal to inspection. Soft to palpation and nontender Skin: No rashes or lesions noted, two big red zheng on the skin from a recent incident, healing well Neuro: Patient oriented x3 Extremities: Normal to inspection, arthritis noted in fingers and feet Vital Signs: Last Vital Signs Pulse 66 08/20/25 12:26 BP 132/82 08/20/25 12:26 Pulse Ox 96 08/20/25 12:26 Oxygen Delivery Method Room Air 08/20/25 12:26 BMI result Body Mass Index 26.3 Const General: No confusion Orientation/consciousness: No confusion HEENT Head: Yes normocephalic Ears: external ears normal and TM's normal bilaterally Face and sinus: Yes normal facial exam Mouth: moist mucous membranes Throat: Yes tonsils normal Eyes Conjunctivae: conjunctivae normal Pupils: Equal, round and reactive pupils present and Pupil accommodation reflex normal Direct Ophthalmoscopy: normal light reflex Neck Neck: No lymphadenopathy Thyroid: Thyroid normal Chest Chest palpation & inspection: normal inspection of the chest Resp Effort & Inspection: normal respiratory effort and no audible wheezes Auscultation: clear to auscultation bilaterally, no crackles, no wheezes and lung sounds not diminished Cardio Rate: regular rate Rhythm: regular rhythm Peripheral pulses: radial pulses present and dorsalis pedis present GI Other: guaiac negative, prostate , hard but normal size Palpation (GI): no masses Auscultation: normal bowel sounds and normoactive bowel sounds Male General Exam: Yes normal external exam Skin General skin exam: no rashes or lesions noted Rashes: no rashes Neuro General: No confusion Cranial nerves: Yes Equal, round and reactive pupils present and Yes Normal hearing present Cognition (Neuro): normal cognition Gait exam (Neuro): Normal gait present Motor exam (neuro): 5/5 motor strength present throughout Deep tendon reflexes (DTR's): Right brachioradialis reflex intensity grade: 2+, Left brachioradialis reflex intensity grade: 2+, Right patellar reflex intensity grade: 2+ and Left patellar reflex intensity grade: 2+ Extrem General: No edema Ankle/foot/toe images: 2 1. hematoma 2. Assessment & Plan Assessment & Plan (1) Medicare annual wellness visit, subsequent: Code(s): Z00.00 - Encounter for general adult medical examination without abnormal findings Plan: Patient is advised to eat healthy, keep well hydrated, keep active and have adequate sleep. (2) Osteoarthritis, hand: Code(s): M19.049 - Primary osteoarthritis, unspecified hand Plan: Patient has been follow-up with [facility] on naproxen. (3) Impaired glucose tolerance: Code(s): R73.02 - Impaired glucose tolerance (oral) Plan: Decrease the amount of carbohydrate intake, pasta, bread, rice and potatoes are all sugar and that is aside from all the sweet stuff, remember that fruits are good but they are Sweet also. (4) Hypercholesterolemia: Code(s): E78.00 - Pure hypercholesterolemia, unspecified Plan: Avoid fried foods, chicken skin, eggs, butter margarine, pastries and meat. Be it pork or beef they have a lot of cholesterol. Blood work is good LDL goal of less than 130 and triglyceride of less than 150 Plan Plan Patient was informed and verbally consented to the use of an ambient scribe for clinic note documentation during this visit. 1. Osteoarthritis The patient will continue to follow up with the [facility] and rheumatology for management of his osteoarthritis. He will continue taking naproxen for pain, with counseling provided on the importance of taking it with food to prevent gastric upset and monitoring kidney function. He was advised to stop naproxen one week prior to his upcoming dental extraction due to its blood- thinning effect and to use Tylenol for pain management in the interim. 2. Hypercholesterolemia The patient's cholesterol labs are at goal, with an LDL of 121 mg/dL (goal <130) and an HDL of 56 mg/dL. No changes to the current management plan are needed at this time. Discussion Notes I reviewed the patient's chart and recent lab work, which is stable and largely within normal limits. I educated him on the risks associated with naproxen, including the need to monitor kidney function and the potential for stomach upset, advising him to take it with food. Given his upcoming dental extraction, I strongly advised him to stop naproxen one week prior to the procedure to minimize bleeding risk and to inform his dental provider of his medication use. We discussed using Tylenol as an alternative for pain relief. I addressed his elevated BUN of 25, explaining it as a sign of dehydration and recommended increasing his water intake to about four bottles daily. I also emphasized the importance of regular movement and exercise for overall health and healing. We discussed preventative health measures, including vaccinations. I explained the benefits of the shingles vaccine, even with a prior history of the illness, and noted he is due for a second pneumonia vaccine. The patient understood but declined both vaccines at this visit. I confirmed his next Cologuard screening is due next year. The patient's questions were answered, and he verbalized understanding of the plan. Patient Instructions - Stop taking Naproxen one week before your dental surgery on Sunday. - You may take Tylenol (acetaminophen) for pain instead, up to two pills three times a day. - When you resume Naproxen, always take it with food to protect your stomach. - Increase your daily water intake to about four bottles per day to stay hydrated. - Continue with regular, light exercise such as walking your dog. - Be careful with strenuous activities and listen to your body to avoid overexertion. - Your next Cologuard test for colon cancer screening is due next year. - Continue to follow up with your arthritis specialist. - We discussed the shingles and pneumonia vaccines, which are available at the pharmacy if you change your mind. Quality Reporting (2019) Depression/Bipolar (159/160/161/177) PHQ-9: Total score: 0 Coding Level of Care Code Medicare Subsequent (G0439) Diagnoses Medicare annual wellness visit, subsequent Z00.00 Osteoarthritis, hand M19.049 Impaired glucose tolerance R73.02 Hypercholesterolemia E78.00
== END 2025-08-20 13:03 | disposition home or self-care (01) ==
LOC: HO.HMCH 12:17
PROVIDERS: PCP Internal Medicine; Visit Provider Internal Medicine
DX: Z00.00 Encounter for general adult medical examination without abnormal findings (principal); M19.049 Primary osteoarthritis, unspecified hand; R73.02 Impaired glucose tolerance (oral); E78.00 Pure hypercholesterolemia, unspecified